=== PATIENT | female | born 1940 | race Caucasian/White ===

== ENCOUNTER 2020-02-21 19:56 | Emergency (ER) | payer MEDICARE, OTHER, SELFPAY ==
[2020-02-21] VITALS (29 sets, daily range): BP systolic 116–137; BP diastolic 51–105; PULSE 59–78; RESP 15–23; TEMP 36.5–36.6; O2SAT 97–100
--- NOTE | ~2020-02-21 | XR_ITS ---
XR chest 1V portable 02/21/2020 20:28 Indication: Cough and dyspnea Procedure: AP portable chest Comparison: Comparison to multiple prior studies sequentially, with oldest reviewed study dated 08/16. Findings: Enlarged pulmonary arteries, compatible with pulmonary arterial hypertension. Right basilar airspace disease. Nodular density right mid thorax. Advanced osteoarthritis of the shoulders with pr obable rotator cuff tears. Left basilar atelectasis. Impression: 1: Right basilar airspace disease, atelectasis versus pneumonia. 2: Nodular density right mid chest, not definitely visualized on prior examinations. Follow-up CT [facility] recommended. Reviewed, dictated and finalized at location [facility]. Impression: 1: Right basilar airspace disease, atelectasis versus pneumonia. 2: Nodular density right mid chest, not definitely visualized on prior examinat ions. Follow-up CT chest recommended.
--- NOTE | ~2020-02-21 | CT_ITS ---
EXAMINATION: CTA chest PE protocol DATE: 02/21/2020 21:26 CDT INDICATION: Dyspnea. Hemoptysis. TECHNIQUE: Computed tomographic angiography (CTA) of the chest was performed with 100 mL Omnipaque-35 0 intravenous contrast. The dose-length product was 839.95 mGy-cm. Maximum intensity projection 3D-re constructions of the aorta and other arteries were constructed by the technologist on a separate work station. COMPARISON: Chest dated 02/21/2020. FINDINGS: The study is technically adequate without evidence for pulmonary embolism. No significant p leural or pericardial effusion. There is emphysema. There is bilateral lower lobe atelectasis/scarrin g. There is focal masslike consolidation right upper lobe which corresponds to the nodular finding on chest x-ray. No endobronchial lesion. No pneumothorax. No significant pleural or pericardial effusio n. Heart size is normal. There is a cyst medial aspect of the right kidney. IMPRESSION: 1. Focal masslike consolidation right upper lobe with spiculated appearance on coronal reconstruction s measuring 2.1 cm. Differential diagnosis includes an infectious/inflammatory etiologies and maligna ncy.. 2: Bilateral lower lobe atelectasis/scarring. 3: No evidence for pulmonary embolism. 4: Emphysema. Reviewed, dictated and finalized at location [facility]. IMPRESSION: 1. Focal masslike consolidation right upper lobe with spiculated appearance on coronal reconstructions measuring 2.1 cm. Differential diagnosis includes an in fectious/inflammatory etiologies and malignancy.. 2: Bilateral lower lobe atelectasis/scarring. 3: No evidence for pulmonary embolism. 4: Emphysema.
--- NOTE | 2020-02-21 20:05 | ED.GENADULT ---
HPI - General Adult General Chief complaint: Shortness of Breath/Dyspnea Stated complaint: coughing up blood?? Time Seen by Provider: 02/21/20 20:01 Source: patient Mode of arrival: EMS Limitations: dementia History of Present Illness HPI narrative: Patient is a 79-year-old female who presents to the emergency department with report of hemoptysis and shortness of breath. Patient has dementia and resides in a memory care unit. Patient states she started coughing up blood today. Report from EMS that spoke with shelter staff stated that patient had blood-tinged sputum. Patient is chronically on 2 L of oxygen. Patient is reportedly being treated for cellulitis on her ankle. Onset (ago): hour(s) Related Data Home Medications Medication Instructions Recorded Confirmed Biofreeze (menthol) 1 applic TOPICAL Q4H PRN 09/02/19 12/02/19 Flovent HFA 2 puff INHALATION BID 09/02/19 12/02/19 acetaminophen [Tylenol] 650 mg PO Q4H PRN 09/02/19 12/02/19 aspirin 81 mg PO DAILY 09/02/19 12/02/19 atorvastatin 10 mg PO HS 09/02/19 12/02/19 guaifenesin [Mucinex] 325 mg PO Q6H PRN 09/02/19 12/02/19 ipratropium-albuterol 0.5 - 3 ml INHALATION TID 09/02/19 12/02/19 ipratropium-albuterol 3 ml INHALATION Q6H PRN 09/02/19 12/02/19 magnesium hydroxide [Milk of 10 ml PO DAILY PRN 09/02/19 12/02/19 Magnesia] melatonin 3 mg PO HS 09/02/19 12/02/19 mirtazapine 15 mg PO HS 09/02/19 12/02/19 omeprazole 20 mg PO DAILY 09/02/19 12/02/19 oxybutynin chloride 5 mg PO HS 09/02/19 12/02/19 paroxetine HCl 10 mg PO DAILY 09/02/19 12/02/19 polyethylene glycol 3350 [Miralax] 17 g PO DAILY PRN 09/02/19 12/02/19 sennosides-docusate sodium [Senna 2 tab-cap PO HS PRN 09/02/19 12/02/19 with Docusate Sodium] tramadol 50 mg PO Q6H PRN 09/02/19 12/02/19 cyanocobalamin (vitamin B-12) 500 mcg PO DAILY 02/21/20 [Vitamin B-12] folic acid 1 mg PO DAILY 02/21/20 furosemide 20 mg PO BID 02/21/20 Allergies Allergy/AdvReac Type Severity Reaction Status Date / Time latex Allergy Unknown Verified 02/21/20 20:07 Penicillins Allergy Unknown Verified 02/21/20 20:07 Review of Systems Review of Systems: All systems reviewed & are unremarkable except as noted in HPI and below Cardiovascular: Cardiovascular: Denies chest pain Respiratory: Respiratory: Reports cough and Reports hemoptysis Gastrointestinal: Gastrointestinal: Denies diarrhea, Denies nausea and Denies vomiting PMFSH Past Medical History Medical History (Updated 02/22/20 @ 01:11 by Nina Roach MD) Asthma Community acquired pneumonia COPD (chronic obstructive pulmonary disease) Dementia Depression Dyslipidemia History of leukemia MDS MDS (myelodysplastic syndrome) Pneumonia Profound anemia UTI (urinary tract infection) Surgical History Surgical History (Updated 02/21/20 @ 20:16 by Nina Roach MD) History of cholecystectomy Social History Social History (Updated 02/21/20 @ 20:17 by Nina Roach MD) Smoking status: Former smoker Tobacco type: cigarettes Alcohol intake: never Gender identity (if verbalized by the patient): Female Spiritual care concerns: No Agree to blood products: No Exam Const: General: cooperative, no acute distress and alert Nutritional Appearance: well nourished Orientation/consciousness: patient oriented x3 Limitations: no limitations Resp: Effort & Inspection: normal respiratory effort Auscultation: wheezes scattered wheezes and throughout Cardio: Rate: regular rate Rhythm: regular rhythm GI: GI Palp: Yes Soft to palpation and No Tenderness to palpation present (GI) Auscultation: normal bowel sounds Skin: General skin exam: normal color Neuro: General: patient oriented x3 Cognition (Neuro): normal cognition Speech: normal speech Extrem: General: full ROM, no clubbing, cyanosis or edema and edema bilateral (Trace) Right lower extremity: lower leg Details: erythema Location: of the distal lower leg (Faint) Loca
--- NOTE | 2020-02-21 20:12 | ECG_ITS ---
Measurements Intervals [place] Rate: 65 P: 45 OK: 114 QRS: 24 QRSD: 104 T: 34 QT: 402 QTc: 420 Interpretive Statements SINUS RHYTHM WITH SHORT OK INTERVAL BORDERLINE ECG Electronically Signed On 02-22-2020 7:00:56 CDT by Anton Monae D.O.
[2020-02-21 20:23] LABS: Basophils Percent Auto 0.5 % (0.2-1.2); Eosinophils Absolute Auto 0.6 K/mm3 (0-0.3); Immature Granulocyte Absolute 0.02 K/mm3 (0.00-0.031); Immature Granulocyte Percent A 0.3 % (0-0.5); Lymphocytes Percent Auto 29.7 % (18.3-44.2); Mean Corpuscular Hemoglobin 34.1 pg (26-34); Mean Corpuscular Volume 110.1 fl (80-100); Mean Platelet Volume 12.3 fl (7.4-10.4); Monocytes Absolute Auto 0.5 K/mm3 (0.1-0.6); Monocytes Percent Auto 6.2 % (2.6-8.5); Neutrophils Absolute Auto 4.1 K/mm3 (1.3-6.7); Neutrophils Percent Auto 55.3 % (45.5-73.1); Platelet Count Result 460 k/mm3 (150-375); Red Blood Count 1.79 M/mm3 (4.2-5.4); Red Cell Distribution Width 19.8 % (11.5-14.5); White Blood Count 7.4 K/mm3 (4.5-10.0)
[2020-02-21 20:34] LABS: Partial Thromboplastin Time 32.3 SECONDS (22.3-36.8)
[2020-02-21 20:35] LABS: Alanine Aminotransferase 7 U/L (4-35); Alkaline Phosphatase 68 U/L (38-126); Aspartate Amino Transferase 17 U/L (14-36); Bilirubin,Total 0.3 mg/dL (0.2-1.3); Blood Urea Nitrogen 16 mg/dL (7-17); Calcium 8.5 mg/dL (8.4-10.2); Carbon Dioxide 38 mmol/L (22-30); Chloride 96 mmol/L (98-107); Estimated CRCL calculation 60 ml/min; Estimated Glomerular Filt Rate > 60; Glucose 104 mg/dL (65-105); Potassium 4.2 mmol/L (3.4-5.0); Sodium 138 mmol/L (137-145)
[2020-02-21 20:40] LABS: Hemoglobin 6.1 g/dL (12.0-15.0)
[2020-02-21 20:41] LABS: Hematocrit 19.7 % (37.0-47.0)
[2020-02-21 20:43] LABS: Anisocytosis 3+ (NORMAL); Ovalocytes 2+ (NORMAL); Tear Drop Cells 2+ (NORMAL)
[2020-02-21 20:44] LABS: NT Pro B Type Natriuretic Pept 561 PG/ML (5-100)
[2020-02-21 20:46] LABS: Schistocytes 2+ (NORMAL)
[2020-02-21 20:47] LABS: Platelet Estimate Adequate (Adequate)
[2020-02-22] VITALS (23 sets, daily range): BP systolic 102–150; BP diastolic 54–74; PULSE 63–77; RESP 12–21; TEMP 36.6; O2SAT 96–100
[2020-02-22] MEDS: AZITHROMYCIN 250 MG TABLET 500 MG PO (00:59)
--- NOTE | 2020-02-22 01:47 | PC.NURSE ---
Called [facility] to transport patient. ETA is [phone]
--- NOTE | 2020-02-22 02:25 | PC.NURSE ---
[facility] called to update ETA. ETA [phone]
--- NOTE | 2020-02-22 03:37 | PC.NURSE ---
Called [facility] for ETA update. ETA [phone]
--- NOTE | 2020-02-22 05:04 | PC.NURSE ---
[facility] here at [phone]
== END 2020-02-22 05:15 ==
PROVIDERS: Emergency Provider Emergency Medicine
DX: R91.8 Other nonspecific abnormal finding of lung field (principal); J44.9 Chronic obstructive pulmonary disease, unspecified; F03.90 Unspecified dementia, unspecified severity, without behavioral disturbance, psychotic disturbance, mood disturbance, and anxiety; E78.5 Hyperlipidemia, unspecified; D46.9 Myelodysplastic syndrome, unspecified; Z87.440 Personal history of urinary (tract) infections; Z87.891 Personal history of nicotine dependence; Z79.82 Long term (current) use of aspirin; F32.9 Major depressive disorder, single episode, unspecified; R94.31 Abnormal electrocardiogram [ECG] [EKG]
CPT/HCPCS: 36415; 71045; 71275; 80053; 83880; 85025; 85610; 85730; 93005; 96365; 99284; A9270; J0696; Q9967

== ENCOUNTER 2020-03-21 03:07 | Emergency (ER) | payer MEDICARE, OTHER, SELFPAY ==
--- NOTE | ~2020-03-21 | CT_ITS ---
EXAMINATION: CTA chest PE protocol DATE: 03/21/2020 05:00 INDICATION: Shortness of breath. Hemoptysis. TECHNIQUE: Computed tomography angiography (CTA) of the chest was performed with 100 mL Omnipaque-350 intravenous contrast timed to evaluate the pulmonary arteries. Coronal maximum intensity projection 3D-reconstructions were created by the technologist. Automated exposure control and iterative reconst ruction technique were employed. Exam dose: 746.84 mGy-cm total exam DLP. COMPARISON: None. FINDINGS: There is diagnostic contrast enhancement of the pulmonary arteries and no evidence of pulmo nary embolism. No thoracic aortic aneurysm or dissection. No hilar or mediastinal mass lesion or lymphadenopathy. No pericardial or pleural effusion. Extensive degenerative changes of the cervical and thoracic spine and lumbar spine. There is focal atelectasis/consolidation in the posterior right upper lobe and some right upper lobe volume loss. Emphysematous changes are noted. There is discoid atelectasis or scarring in the postero lateral right lower lobe. IMPRESSION: No evidence of pulmonary embolism; no significant change since 03/02/2020 Reviewed, dictated and finalized at [facility]. Reviewed, dictated and finalized at location [facility]. IMPRESSION: No evidence of pulmonary embolism; no significant change since 02/13
[2020-03-21 03:08] VITALS: BP 142/56; PULSE 63; RESP 19; TEMP 36.5; O2SAT 77
[2020-03-21 03:18] VITALS: BP 128/61; PULSE 58; RESP 17; O2SAT 97
--- NOTE | 2020-03-21 04:36 | ED.GENADULT ---
HPI - General Adult General Chief complaint: Recheck/Abnormal Lab/Rx Stated complaint: COUGHING UP BLOOD Time Seen by Provider: 03/21/20 04:26 History of Present Illness HPI narrative: Patient presents via EMS from her intermediate and her daughter is here. At the intermediate she was feeling short of breath and coughed up about a half a cup of blood. This is similar presentation to her last visit here a month ago. She is known to have myeloproliferative disease, and runs anemic. She does not want a blood transfusion even if her counts are low. She has dementia and is oriented x2. Her daughter is her power of agricultural plow operator, but agrees with her mother's decisions. When I asked what she wants for me, she said just to go back to her intermediate. There is a known lung mass, which is suspected to be cancer, if that is the case I can recommend hospice. Onset (ago): hour(s) Radiation: non-radiation Related Data Home Medications Medication Instructions Recorded Confirmed Biofreeze (menthol) 1 applic TOPICAL Q4H PRN 09/02/19 12/02/19 Flovent HFA 2 puff INHALATION BID 09/02/19 12/02/19 acetaminophen [Tylenol] 650 mg PO Q4H PRN 09/02/19 12/02/19 aspirin 81 mg PO DAILY 09/02/19 12/02/19 atorvastatin 10 mg PO HS 09/02/19 12/02/19 guaifenesin [Mucinex] 325 mg PO Q6H PRN 09/02/19 12/02/19 ipratropium-albuterol 0.5 - 3 ml INHALATION TID 09/02/19 12/02/19 ipratropium-albuterol 3 ml INHALATION Q6H PRN 09/02/19 12/02/19 magnesium hydroxide [Milk of 10 ml PO DAILY PRN 09/02/19 12/02/19 Magnesia] melatonin 3 mg PO HS 09/02/19 12/02/19 mirtazapine 15 mg PO HS 09/02/19 12/02/19 omeprazole 20 mg PO DAILY 09/02/19 12/02/19 oxybutynin chloride 5 mg PO HS 09/02/19 12/02/19 paroxetine HCl 10 mg PO DAILY 09/02/19 12/02/19 polyethylene glycol 3350 [Miralax] 17 g PO DAILY PRN 09/02/19 12/02/19 sennosides-docusate sodium [Senna 2 tab-cap PO HS PRN 09/02/19 12/02/19 with Docusate Sodium] tramadol 50 mg PO Q6H PRN 09/02/19 12/02/19 cyanocobalamin (vitamin B-12) 500 mcg PO DAILY 02/21/20 [Vitamin B-12] folic acid 1 mg PO DAILY 02/21/20 furosemide 20 mg PO BID 02/21/20 Allergies Allergy/AdvReac Type Severity Reaction Status Date / Time latex Allergy Unknown Verified 02/21/20 20:07 Penicillins Allergy Unknown Verified 02/21/20 20:07 Review of Systems Review of Systems: Narrative: CONSTITUTIONAL: Denies fever, chills, or sweats. EYES: Denies visual changes, redness, or discharge. ENT: Denies rhinorrhea, congestion, sore throat, or otalgia. CARDIOVASCULAR: Denies chest pain, palpitations, or edema. RESPIRATORY: She had shortness of breath and cough with blood at the intermediate. GASTROINTESTINAL: Denies abdominal pain, nausea, vomiting, or diarrhea. GENITOURINARY: Denies dysuria or hematuria. SKIN: Denies rash or itching. MUSCULOSKELETAL: Denies back pain, joint pain, or myalgia. NEUROLOGIC: Denies headache, numbness, or weakness. She has no memory problems. PSYCHIATRIC: Denies anxiety or depression. PMFSH Past Medical History Medical History Asthma Community acquired pneumonia COPD (chronic obstructive pulmonary disease) Dementia Depression Dyslipidemia History of leukemia MDS MDS (myelodysplastic syndrome) Pneumonia Profound anemia UTI (urinary tract infection) Surgical History Surgical History History of cholecystectomy Social History Social History Smoking status: Former smoker Tobacco type: cigarettes Alcohol intake: never Gender identity (if verbalized by the patient): Female Spiritual care concerns: No Agree to blood products: No Exam Narrative: Exam Narrative: GENERAL: Well-appearing, well-nourished, and in no acute distress. Pale overweight. HEAD: Normocephalic, atraumatic. EYES: PERRLA and EOMI. ENT: Nares clear, no rhinorrhea or epistaxis. Mucous
[2020-03-21 04:46] LABS: Basophils Percent Auto 0.7 % (0.2-1.2); Eosinophils Absolute Auto 0.6 K/mm3 (0-0.3); Eosinophils Percent Auto 10.4 % (0-4.4); Immature Granulocyte Absolute 0.03 K/mm3 (0.00-0.031); Immature Granulocyte Percent A 0.5 % (0-0.5); Lymphocytes Absolute Auto 1.41 K/mm3 (0.9-3.2); Lymphocytes Percent Auto 23.5 % (18.3-44.2); Mean Corpuscular Hemoglobin 34.1 pg (26-34); Mean Corpuscular Volume 109.9 fl (80-100); Monocytes Absolute Auto 0.3 K/mm3 (0.1-0.6); Monocytes Percent Auto 5.7 % (2.6-8.5); Neutrophils Absolute Auto 3.6 K/mm3 (1.3-6.7); Neutrophils Percent Auto 59.2 % (45.5-73.1); Platelet Count Result 448 k/mm3 (150-375); Red Blood Count 1.82 M/mm3 (4.2-5.4); Red Cell Distribution Width 21.5 % (11.5-14.5)
[2020-03-21 04:55] LABS: Prothrombin Time 13.3 Seconds (11.1-14.7)
[2020-03-21 04:58] LABS: Hemoglobin 6.2 g/dL (12.0-15.0)
[2020-03-21 05:07] LABS: Alanine Aminotransferase 7 U/L (4-35); Albumin Level 3.8 g/dL (3.5-5.1); Alkaline Phosphatase 55 U/L (38-126); Aspartate Amino Transferase 17 U/L (14-36); Bilirubin,Total 0.4 mg/dL (0.2-1.3); Blood Urea Nitrogen 18 mg/dL (7-17); Calcium 8.8 mg/dL (8.4-10.2); Carbon Dioxide > 40 mmol/L (22-30); Chloride 97 mmol/L (98-107); Estimated Glomerular Filt Rate > 60; Glucose 93 mg/dL (65-105); Potassium 4.4 mmol/L (3.4-5.0); Sodium 138 mmol/L (137-145)
[2020-03-21 05:32] VITALS: BP 120/53; PULSE 56; RESP 13
--- NOTE | 2020-03-21 06:19 | PC.NURSE ---
This nurse spoke with Pt and daughter about low hgb level and their options. Pt does not want blood transfusions and daughter agrees with the patient's decision at this time.
[2020-03-21 06:22] VITALS: RESP 16; O2SAT 97
[2020-03-21 06:31] VITALS: BP 122/64; PULSE 63; RESP 17; O2SAT 98
--- NOTE | 2020-03-21 07:14 | PC.NURSE ---
Pt is in room awaiting EMS for pick to return to nursing facility. This nurse mcgregor given report to RN Cat.
[2020-03-21 08:15] VITALS: BP 130/70; PULSE 70; RESP 18; O2SAT 98
== END 2020-03-21 08:15 ==
PROVIDERS: Emergency Provider Emergency Medicine
DX: J18.9 Pneumonia, unspecified organism (principal); D46.9 Myelodysplastic syndrome, unspecified; R04.2 Hemoptysis; J44.9 Chronic obstructive pulmonary disease, unspecified; F03.90 Unspecified dementia, unspecified severity, without behavioral disturbance, psychotic disturbance, mood disturbance, and anxiety; E78.5 Hyperlipidemia, unspecified; Z87.440 Personal history of urinary (tract) infections; Z87.891 Personal history of nicotine dependence; Z79.82 Long term (current) use of aspirin
CPT/HCPCS: 36415; 71275; 80053; 85025; 85610; 86850; 86900; 86901; 96365; 99284; J0696; Q9967

== ENCOUNTER 2020-06-25 11:58 | Outpatient (CLI) | payer MEDICARE, OTHER, SELFPAY ==
--- NOTE | ~2020-06-25 | PE_ITS ---
EXAMINATION: PET skull to mid thigh DATE: 06/25/2020 14:47 INDICATION: Pulmonary nodule TECHNIQUE: Blood glucose level was 86 mg/dL. 9.8 mCi of 18-fluorodeoxyglucose (18-FDG) was administer ed i.v. Low dose computed tomography (CT) images were acquired from the base of the brain to the prox imal thighs for attenuation correction and anatomic localization. Positron emission tomography (PET) images were acquired in the same distribution beginning 60 minutes after injection. The dose-length p roduct (DLP) was 948.67 mGy-cm. COMPARISON: 03/21/2020 FINDINGS: Head/neck: FDG activity in the oral cavity without suspicious CT correlate is likely physiologic. Chest: There is an approximately 3.5 x 2.1 cm mass of the right upper lobe with abnormal FDG uptake i n its central portion and SUV max of 3.1. There is a 3.6 x 2.4 cm pathologically enlarged right lower paratracheal lymph node with an SUV max of 7.7. A 7 mm nodule is located more anteriorly in the righ t upper lobe and does not demonstrate associated FDG uptake although this could be due to small size. Cardiomegaly is noted. There is no pleural effusion or pneumothorax. Abdomen/pelvis/proximal thighs: Physiologic FDG activity is present in the bowel and urinary tract. T here is an approximately 2 cm area of FDG uptake in liver segment IV with SUV max of 3.7 with a possi ble subtle associated mass. The gallbladder is surgically absent. Pneumobilia is noted, suspect relat ed to prior sphincterotomy. The spleen, pancreas, and adrenal glands are normal. The kidneys are unre markable. No pathologically enlarged abdominal or pelvic lymph nodes are identified. There is no free intraperitoneal gas or evidence of bowel obstruction. There is calcified atherosclerosis of the aort a and many of the other arteries. Musculoskeletal: No suspicious FDG uptake is identified. There are is a compression fracture of the L 3 vertebral body. Severe lumbar spondylosis noted. There is mild/moderate cervical and thoracic spond ylosis. IMPRESSION: 1. Right upper lobe mass with abnormal FDG uptake, consistent with primary bronchogenic carcinoma. 2. Enlarged right lower paratracheal lymph node with abnormal FDG uptake, consistent with metastatic disease. 3. Abnormal FDG uptake in liver segment IV without definite CT correlate but also concerning for meta static disease. Reviewed, dictated and finalized at location [facility]. IMPRESSION: 1. Right upper lobe mass with abnormal FDG uptake, consistent with primary bron chogenic carcinoma. 2. Enlarged right lower paratracheal lymph node with abnormal FDG uptake, consi stent with metastatic disease. 3. Abnormal FDG uptake in liver segment IV without definite CT correlate but al so concerning for metastatic disease.
[2020-06-25 12:45] LABS: Glucose Point of Care 86 (65-105)
== END 2020-06-25 11:59 | disposition home or self-care (01) ==
PROVIDERS: Visit Provider Radiology Radiation Oncology
DX: R91.1 Solitary pulmonary nodule (principal); R91.8 Other nonspecific abnormal finding of lung field; R59.0 Localized enlarged lymph nodes; R93.2 Abnormal findings on diagnostic imaging of liver and biliary tract
CPT/HCPCS: 78815; A9552

== ENCOUNTER 2020-10-05 13:16 | Outpatient (CLI) | payer MEDICARE, OTHER, SELFPAY ==
--- NOTE | ~2020-10-05 | CT_ITS ---
EXAMINATION: CT chest wo con DATE: 10/05/2020 13:57 INDICATION: Malignant neoplasm of the right upper lobe. TECHNIQUE: Computed tomography (CT) of the chest was performed without intravenous contrast. The dose -length product was 494.17 mGy-cm. Automated exposure control and iterative reconstruction technique were employed. COMPARISON: CT dated 03/21/2020 FINDINGS: There is atherosclerosis of the aorta and coronary arteries. Heart size upper normal. No si gnificant pleural or pericardial effusion. No thoracic lymphadenopathy. There is an irregular shaped soft tissue mass in the right upper lobe measuring 1.5 x 3.2 cm greatest axial dimension. There are c ontiguous air bronchograms. There are emphysematous changes. There is a 4 mm right middle lobe nodule without significant change. There is right lower lobe atelectasis. No pneumothorax. There is a subso lid nodule in the right upper lobe adjacent to a bleb measuring 10 x 8 mm greatest axial dimension. I nterval resolution of right paratracheal lymphadenopathy compared with prior examination, consistent with response to therapy. IMPRESSION: 1. Possible slight interval decrease in size of right upper lobe mass with irregular margins. This co rresponds to the patient's known malignancy. The mass now measures 3.2 x 1.5 cm greatest axial dimens ion. Interval resolution of right paratracheal lymphadenopathy. This constellation of findings is sug gestive of interval response to therapy. 2: Subsolid right upper lobe nodule measuring 10 x 8 mm adjacent to a bleb. Differential diagnosis in cludes metastatic disease and postinfectious/inflammatory changes. 3: Emphysema. Reviewed, dictated and finalized at location [facility]. ARY SUPERVISOR IMPRESSION: 1. Possible slight interval decrease in size of right upper lobe mass with irre gular margins. This corresponds to the patient's known malignancy. The mass now measures 3.2 x 1.5 cm greatest axial dimension. Interval resolution of right p aratracheal lymphadenopathy. This constellation of findings is suggestive of in terval response to therapy. 2: Subsolid right upper lobe nodule measuring 10 x 8 mm adjacent to a bleb. Dif ferential diagnosis includes metastatic disease and postinfectious/inflammatory changes. 3: Emphysema.
== END 2020-10-05 13:17 | disposition home or self-care (01) ==
PROVIDERS: Visit Provider Radiology Radiation Oncology
DX: C34.11 Malignant neoplasm of upper lobe, right bronchus or lung (principal); I25.10 Atherosclerotic heart disease of native coronary artery without angina pectoris; J98.11 Atelectasis; J43.9 Emphysema, unspecified
CPT/HCPCS: 71250

== ENCOUNTER 2020-11-26 14:26 | Inpatient (IN) | payer MEDICARE, OTHER, SELFPAY ==
[2020-11-26] VITALS (32 sets, daily range): BP systolic 102–125; BP diastolic 44–96; PULSE 63–73; RESP 14–82; TEMP 36.1–37.2; O2SAT 86–100; BMI 32.1
--- NOTE | ~2020-11-26 | CT_ITS ---
EXAMINATION: CT chest abdomen pelvis wo con DATE: 11/26/2020 15:43 TEAM MEMBER INDICATION: Altered mental status. Abdomen pain. Shortness of breath. TECHNIQUE: Computed tomography (CT) of the chest, abdomen, and pelvis was performed without intraveno us contrast. The dose-length product was 1526.46 mGy-cm. Automated exposure control and iterative rec onstruction technique were employed. COMPARISON: Comparison to multiple prior studies sequentially, with oldest reviewed study dated 03/2020. FINDINGS: CHEST CT: There is a persistent right upper lobe mass which abuts the fissure measuring 2.6 x 1.7 cm greatest a xial dimension. There is adjacent airspace consolidation in the right upper lobe. There is a 7 mm nod ule adjacent to a bleb in the right upper lobe, image 37. There is right lower lobe atelectasis. Ther e is right paratracheal lymphadenopathy unchanged, likely metastatic disease. No significant pleural or pericardial effusion. Heart size is normal. There is atherosclerosis. ABDOMEN/PELVIS CT: Status post cholecystectomy with pneumobilia. The spleen, pancreas, adrenal glands and kidneys are un remarkable. There is retroperitoneal lymphadenopathy, nonspecific. There is a left inguinal hernia co ntaining nonobstructed small bowel. There is lymphadenopathy of the right external iliac chain, retro peritoneum and right femoral locations. There is a right hip arthroplasty. There is mild superior end plate compression deformities of L3 and L5, likely chronic. There is moderate thoracic and lumbar spo ndylosis. There is grade 1 degenerative spondylolisthesis at L4-5. There is scoliosis. IMPRESSION: 1. Persistent right upper lobe mass without significant interval change measuring 2.6 x 1.[address] axial dimension, consistent with patient's known malignancy. Additional smaller nodule measuring 7 mm in the right upper lobe may represent metastatic disease. 2: Mediastinal, abdominal and pelvic lymphadenopathy, nonspecific. Mediastinal lymph nodes are impro pauline since 06/25/2020 and stable since 10/05/2020. Additional lymph nodes in the abdomen or pelvis are stable. Reviewed, dictated and finalized at location B. MEMBER IMPRESSION: 1. Persistent right upper lobe mass without significant interval change measuri ng 2.6 x 1.7 cm greatest axial dimension, consistent with patient's known malig diane. Additional smaller nodule measuring 7 mm in the right upper lobe may rep resent metastatic disease. 2: Mediastinal, abdominal and pelvic lymphadenopathy, nonspecific. Mediastinal lymph nodes are improved since 06/25/2020 and stable since 10/05/2020. Addition al lymph nodes in the abdomen or pelvis are stable.
--- NOTE | ~2020-11-26 | CT_ITS ---
EXAMINATION: CT brain wo con DATE: 11/26/2020 15:39 INDICATION: Altered mental status. TECHNIQUE: Computed tomography (CT) of the head was performed without intravenous contrast. Sagittal and coronal reconstructions were performed. The mA was adjusted according to patient size. Iterative reconstruction technique was employed. The dose-length product was 681.00 mGy-cm. COMPARISON: None FINDINGS: No acute intracranial hemorrhage, acute infarction or abnormal extra axial fluid collection. There is moderate scattered white matter hypoattenuation consistent with chronic small vessel ischemic diseas e. Symmetric prominence of the sulci consistent with mild age-appropriate diffuse cerebral volume los s. Ventricles are normal and symmetric. No mass/mass effect. Changes of bilateral intraocular lens re placement. The orbits and mastoid air cells are normal. Mucosal thickening the bilateral maxillary si nuses IMPRESSION: 1. No acute intracranial process. 2. Age-related changes including mild diffuse volume loss and moderate scattered white matter hypoatt enuation consistent with chronic small vessel ischemic disease. Reviewed, dictated and finalized at location A. DING ROOM SUPERVISOR IMPRESSION: 1. No acute intracranial process. 2. Age-related changes including mild diffuse volume loss and moderate scattere d white matter hypoattenuation consistent with chronic small vessel ischemic di sease.
--- NOTE | 2020-11-26 14:31 | ECG_ITS ---
Measurements Intervals [place] Rate: 68 P: 60 WI: 130 QRS: 28 QRSD: 104 T: 59 QT: 397 QTc: 424 Interpretive Statements SINUS RHYTHM DELAYED PRECORDIAL R/S TRANSITION BASELINE ARTIFACT- I, II, III, AVR, AVL, AVF, V1-V3 BORDERLINE ECG Electronically Signed On 11-26-2020 14:51:12 [employer]OLD [employer]HER by Anton Monae D.O.
[2020-11-26 14:46] LABS: Basophils Percent Auto 0.7 % (0.2-1.2); Eosinophils Percent Auto 0.4 % (0-4.4); Immature Granulocyte Percent A 1.8 % (0-0.5); Lymphocytes Absolute Auto 1.02 K/mm3 (0.9-3.2); Lymphocytes Percent Auto 18.1 % (18.3-44.2); Mean Corpuscular HGB Conc 31.2 g/dl (32-36); Mean Corpuscular Hemoglobin 37.6 pg (26-34); Mean Corpuscular Volume 120.6 fl (80-100); Mean Platelet Volume 12.7 fl (7.4-10.4); Monocytes Absolute Auto 0.5 K/mm3 (0.1-0.6); Monocytes Percent Auto 9.3 % (2.6-8.5); Neutrophils Absolute Auto 3.9 K/mm3 (1.3-6.7); Neutrophils Percent Auto 69.7 % (45.5-73.1); Nucleated Red Blood Cells Perc 0.7 % (0.0-0.2); Platelet Count Result 339 k/mm3 (150-375); Red Cell Distribution Width 22.2 % (11.5-14.5); White Blood Count 5.6 K/mm3 (4.5-10.0)
[2020-11-26 14:54] LABS: Hemoglobin 6.4 g/dL (12.0-15.0)
[2020-11-26 14:55] LABS: Hematocrit 20.5 % (37.0-47.0)
[2020-11-26 15:00] LABS: Alanine Aminotransferase 23 U/L (4-35); Alkaline Phosphatase 41 U/L (38-126); Aspartate Amino Transferase 38 U/L (14-36); Bilirubin,Total 0.6 mg/dL (0.2-1.3); Blood Urea Nitrogen 22 mg/dL (7-17); Calcium 8.6 mg/dL (8.4-10.2); Carbon Dioxide > 40 mmol/L (22-30); Chloride 96 mmol/L (98-107); Estimated Glomerular Filt Rate 53; Glucose 96 mg/dL (65-105); Potassium 4.3 mmol/L (3.4-5.0); Sodium 141 mmol/L (137-145)
[2020-11-26 15:06] LABS: Add Urine Microscopic? NO; Appearance Urine Clear (Clear); Bilirubin Urine Negative (Negative); Blood Urine Negative (Negative); Color Urine Yellow (Yellow); Glucose Urine UA Negative (Negative); Ketones Urine Negative (Negative); Leukocyte Esterase Ur Negative LEU/UL (Negative); Nitrate Urine Negative (Negative); Protein Urine Negative (Negative); Specific Grav Ur 1.012 (1.001-1.035); Urobilinogen Urine Negative mg/dL (<2.0)
[2020-11-26 15:06] LABS: Anisocytosis 3+ (NORMAL); Hypochromasia 2+ (NORMAL); Platelet Estimate Adequate (Adequate)
--- NOTE | 2020-11-26 15:16 | ED.AMS ---
HPI - Altered Mental Status General Chief Complaint: Altered Mental Status Stated Complaint: altered mental Time Seen by Provider: 11/26/20 14:55 Source: patient and family Mode of arrival: EMS Limitations: altered mental status History of Present Illness HPI narrative: Patient is an 80-year-old female brought in due for altered mental status x2 weeks but worse the past 2 days. Her daughter states that today patient would not even wake up or get up to go the bathroom , patient is usually in a wheelchair but states that she would inform someone if she needed assist. Daughter also states that she noticed an increased work of breathing, on 2 L continuously at the assisted living facility but upon arrival today to the ER oxygen saturation was 86%. daughter also states that the past few days patient is more lethargic. Patient denies any headache, chest pain, shortness of breath, nausea, vomiting, diarrhea, urinary symptoms, fever or chills. Follow-up patient does admit to abdominal pain generalized earlier today but states that it slowly subsiding. Related Data Home Medications Medication Instructions Recorded Confirmed Biofreeze (menthol) 1 applic TOPICAL Q4H PRN 09/02/19 11/24/20 Flovent HFA 2 puff INHALATION BID 09/02/19 11/24/20 acetaminophen [Tylenol] 650 mg PO Q4H PRN 09/02/19 11/24/20 aspirin 81 mg PO DAILY 09/02/19 11/24/20 atorvastatin 10 mg PO HS 09/02/19 11/24/20 guaifenesin [Mucinex] 325 mg PO Q6H PRN 09/02/19 11/24/20 ipratropium-albuterol 0.5 - 3 ml INHALATION TID 09/02/19 11/24/20 ipratropium-albuterol 3 ml INHALATION Q6H PRN 09/02/19 11/24/20 magnesium hydroxide [Milk of 10 ml PO DAILY PRN 09/02/19 11/24/20 Magnesia] melatonin 3 mg PO HS 09/02/19 11/24/20 mirtazapine 15 mg PO HS 09/02/19 11/24/20 omeprazole 20 mg PO DAILY 09/02/19 11/24/20 oxybutynin chloride 5 mg PO HS 09/02/19 11/24/20 paroxetine HCl 10 mg PO DAILY 09/02/19 11/24/20 polyethylene glycol 3350 [Miralax] 17 g PO DAILY PRN 09/02/19 11/24/20 sennosides-docusate sodium [Senna 2 tab-cap PO HS PRN 09/02/19 11/24/20 with Docusate Sodium] tramadol 50 mg PO Q6H PRN 09/02/19 11/24/20 cyanocobalamin (vitamin B-12) 500 mcg PO DAILY 02/21/20 11/24/20 [Vitamin B-12] folic acid 1 mg PO DAILY 02/21/20 11/24/20 furosemide 20 mg PO BID 02/21/20 11/24/20 Allergies Allergy/AdvReac Type Severity Reaction Status Date / Time latex Allergy Unknown Verified 10/13/20 11:13 Penicillins Allergy Unknown Verified 10/13/20 11:13 Review of Systems Review of Systems: All systems reviewed & are unremarkable except as noted in HPI and below Constitutional: Constitutional: Denies body ache(s), Denies chills, Denies excessive sweating, Denies fatigue, Denies fever(s), Denies headache(s) and Denies weight loss Eyes: Eyes: Denies blurry vision, Denies change in vision and Denies loss of vision ENT: Denies dizziness, Denies ear discharge, Denies headache(s), Denies lip swelling, Denies epistaxis, Denies nasal congestion, Denies neck pain, Denies throat swelling and Denies tongue swelling Cardiovascular: Cardiovascular: Denies chest pain, Denies chest pain at rest, Denies chest pain with activity, Denies diaphoresis, Denies rapid heart rate, Denies edema, Denies irregular heart rhythm, Denies lightheadedness, Denies palpitations and Denies dyspnea Respiratory: Respiratory: Denies chest congestion, Denies cough, Denies hemoptysis and Denies dyspnea Gastrointestinal: Gastrointestinal: Denies abdominal pain, Denies melena, Denies hematochezia, Denies diarrhea, Denies nausea, Denies vomiting and Denies hematemesis Neurologic: Denies Abnormal speech present, Denies dizziness, Denies headache(s), Denies focal weakness, Denies loss of vision, Denies numbness, Denies Other visual disturbances and Denies Sensory deficit (Neuro) Psychiatric: Psychiatric: Denies depression, Denies auditory hallucinations, Denies homicidal ideation and Denies suicidal ideation Endocrine: Endocrine: Denies co
[2020-11-26 16:49] LABS: Alveolar/Arterial O2 Gradient 125.3 mmHg; Base Excess ABG 11.5 mEq/l (+/-2.0); Carboxyhemoglobin 1.8 % THb (0-2.0); Fractional Inspired Oxygen 36 %; HCO3 ABG 37.7 mEq/l (22.0-26.0); Methemoglobin ABG 0.4 %THb (0-1.5); Oxygen Content ABG 8.5 %vol (16.0-22.0); Oxygen Saturation ABG 88.8 % (95.0-100.0); PO2 ABG 57.7 mmHg (80.0-100.0); Reduced Hemoglobin 13.8 %THb (0-5.0); pH ABG 7.392 (7.350-7.450)
[2020-11-26 16:51] LABS: PCO2 ABG 63.5 mmHg (35.0-45.0)
[2020-11-26 16:52] LABS: Device NASAL CANNULA; Site Drawn LEFT BRACHIAL; Total Hemoglobin 7.1 g/dL (12.0-18.0)
[2020-11-26] MEDS: IPRATROPIUM BR 0.02% INH SOLN 0.5 MG/2.5 ML VIAL INHALATION (16:58)
[2020-11-26] MEDS: ALBUTEROL SULFATE NEB 2.5 MG/0.5 ML INH 5 MG INHALATION (16:59)
--- NOTE | 2020-11-26 19:13 | PC.NURSE ---
Pt report to J[facility] Lim at this time bedside, he has assumed pt care.
[2020-11-26] MEDS: LACTATED RINGERS 1,000 ML 90 ML IV CONT (21:32)
--- NOTE | 2020-11-26 23:17 | ADMGEN ---
This patient, Lindsay Brown, was admitted to IMU Room 232-01 AT 2250. Patient/family oriented to hospital policies and general routines including ID bracelet, bed and alarms, visiting hours, pain management, procedures, bathroom and other care routines, personal items, smoking policy, room service/diet, and visiting hours. Information on how to activate the Rapid Response Team has been discussed. Patient/Family are encouraged to report perceived risks to care and to ask questions if they do not understand what they are told or what they should do.
[2020-11-27] VITALS (21 sets, daily range): BP systolic 103–135; BP diastolic 40–73; PULSE 60–81; RESP 15–22; TEMP 36–36.5; O2SAT 92–99
--- NOTE | 2020-11-27 00:11 | PM.IMHP ---
H&P: HPI History of Present Illness Date/Time: 11/26/20 7608 Chief Complaint: Hypoxia and hypercapnia Narrative: Lindsay Brown is a 80 year old female who has a history of dementia and resides at [facility]. Altered mental status changes for the last 2 weeks but has gotten worse the last 2 days. The patient has chronic hypoxia and is on oxygen at 2 L per nasal cannula chronically. The patient was very lethargic today and would even get up to go to the bathroom. The patient had increased shortness of breath. Patient's O2 saturations were 86% on her continuous 2 L per nasal cannula And was more lethargic. 6.4 and 20.5 which is her chronic baseline level due to MDS(myelodysplastic syndrome). The patient is a Jehovah Witness and does not receive any blood products. On her ABGs, Her pH was normal and her stay pCO2 was 63.5 And her PO2 was 57.7. Of the abdomen was read as persistent right upper lobe mass without significant interval change measuring 2.6 x 1.7 cm greatest axial dimension consistent with patient's known malignancy. Additional smaller nodule measuring 7 mm in the right upper lobe may represent metastatic disease. Mediastinal abdominal and pelvic lymphadenopathy. Mediastinal lymph nodes are improved since 06/25/2020 and stable since 10/05/2020. Head CT offered nothing acute age-related changes including mild diffuse volume loss and moderate scattered white matter hypoattenuation consistent was chronic small vessel ischemic disease. The patient was placed on a BiPAP machine and she was able to answer some questions for me. Admitted to observation the date of service of 11/26/2020 Review of Systems Review of Systems: All systems reviewed & are unremarkable except as noted in HPI and below Constitutional: Constitutional: Reports as per HPI and Reports no additional constitutional complaints Eyes: Eyes: Reports as per HPI and Reports no additional eye complaints ENT: Reports system reviewed and no additional complaints, except as documented and Reports Normal hearing present Cardiovascular: Cardiovascular: Reports no additional cardiovascular complaints Respiratory: Respiratory: Reports no additional respiratory complaints and Reports no additional respiratory complaints Gastrointestinal: Gastrointestinal: Reports as per HPI and Reports no additional gastrointestinal complaints Musculoskeletal: Musculoskeletal: Reports no additional musculoskeletal complaints Integumentary/Breasts: Skin/Breast: Reports system reviewed and no additional complaints, except as docu and Reports as per HPI Neurologic: Reports system reviewed and no additional complaints, except as documented, Reports as per HPI and Reports Normal hearing present Psychiatric: Psychiatric: Reports no additional psychiatric complaints and Reports as per HPI Endocrine: Endocrine: Reports no additional endocrine complaints Hematologic/Lymphatic: Hematologic/Lymphatic: Reports no additional hematologic/lymphatic complaints Allergic/Immunologic: Allergic/Immunologic: Reports no additional allergic/immunologic complaints [facility] Past Medical History Medical History (Updated 11/27/20 @ 00:29 by Chasity Sims NP) Asthma Chronic respiratory failure with hypoxia On 2 L per nasal cannula Closed fracture of right hip requiring operative repair Community acquired pneumonia COPD (chronic obstructive pulmonary disease) Dementia Depression Dyslipidemia History of leukemia MDS MDS (myelodysplastic syndrome) Metastatic lung cancer (metastasis from lung to other site) Pneumonia Profound anemia S/P ORIF (open reduction internal fixation) fracture Right hip UTI (urinary tract infection) Surgical History Surgical History History of cholecystectomy Family History Family History Mother Leukemia Social History Social History (Update
[2020-11-27 00:42] LABS: Alveolar/Arterial O2 Gradient 124.1 mmHg; Fractional Inspired Oxygen 40 %; HCO3 ABG 38.6 mEq/l (22.0-26.0); Oxygen Content ABG 8.8 %vol (16.0-22.0); Oxyhemoglobin 93.9 % THb (90.0-100.0); PCO2 ABG 59.9 mmHg (35.0-45.0); PO2 ABG 92.2 mmHg (80.0-100.0); pH ABG 7.427 (7.350-7.450)
[2020-11-27 00:44] LABS: Device NON-INVASIVE VENT; Modified Allen's Test Pass; Site Drawn LEFT RADIAL; Total Hemoglobin 6.5 g/dL (12.0-18.0)
[2020-11-27 00:45] LABS: Non-Invasive Expiratory Pressure 5 CMH2O; Non-Invasive Inspiratory Pressure 12 CMH2O; Non-Invasive Vent Rate 4 /MIN
[2020-11-27 05:08] LABS: Basophils Percent Auto 0.5 % (0.2-1.2); Eosinophils Absolute Auto 0.1 K/mm3 (0-0.3); Eosinophils Percent Auto 2.5 % (0-4.4); Immature Granulocyte Absolute 0.05 K/mm3 (0.00-0.031); Immature Granulocyte Percent A 1.2 % (0-0.5); Lymphocytes Absolute Auto 0.81 K/mm3 (0.9-3.2); Lymphocytes Percent Auto 18.7 % (18.3-44.2); Mean Corpuscular HGB Conc 30.6 g/dl (32-36); Mean Corpuscular Hemoglobin 35.8 pg (26-34); Mean Platelet Volume 12.4 fl (7.4-10.4); Monocytes Absolute Auto 0.3 K/mm3 (0.1-0.6); Monocytes Percent Auto 7.6 % (2.6-8.5); Neutrophils Percent Auto 69.5 % (45.5-73.1); Nucleated Red Blood Cells Perc 0.7 % (0.0-0.2); Platelet Count Result 273 k/mm3 (150-375); Red Blood Count 1.59 M/mm3 (4.2-5.4); Red Cell Distribution Width 22.5 % (11.5-14.5); White Blood Count 4.3 K/mm3 (4.5-10.0)
[2020-11-27 05:21] LABS: Hematocrit 18.6 % (37.0-47.0); Hemoglobin 5.7 g/dL (12.0-15.0)
[2020-11-27 05:27] LABS: Alanine Aminotransferase 19 U/L (4-35); Albumin Level 3.4 g/dL (3.5-5.1); Alkaline Phosphatase 39 U/L (38-126); Aspartate Amino Transferase 30 U/L (14-36); Bilirubin,Total 0.7 mg/dL (0.2-1.3); Blood Urea Nitrogen 20 mg/dL (7-17); CRP 0.7 mg/dL (<1.0); Calcium 8.5 mg/dL (8.4-10.2); Carbon Dioxide > 40 mmol/L (22-30); Chloride 99 mmol/L (98-107); Estimated CRCL calculation 54 ml/min; Estimated Glomerular Filt Rate > 60; Glucose 90 mg/dL (65-105); Lactate Dehydrogenase 456 U/L (313-618); Magnesium 1.7 mg/dL (1.6-2.3); Potassium 4.1 mmol/L (3.4-5.0); Sodium 142 mmol/L (137-145)
[2020-11-27 06:20] LABS: Thyroid Stimulating Hormone Reflex 0.788 uIU/mL (0.465-4.68)
--- NOTE | 2020-11-27 08:51 | PM.IMPN ---
Progress Note: A&P Assessment and Plan (1) Chronic respiratory failure with hypoxia: Code(s): J96.11 - Chronic respiratory failure with hypoxia Status: Chronic Assessment and Plan: Will continue with BiPAP. Monitor ABG oxygen and carbon dioxide. Will also give steroid and p.o. antibiotics. For possible bronchitis. (2) Metastatic lung cancer (metastasis from lung to other site): Code(s): C34.90 - Malignant neoplasm of unspecified part of unspecified bronchus or lung Status: Chronic Assessment and Plan: Stable no acute changes. Will continue to monitor. (3) Profound anemia: Code(s): D64.9 - Anemia, unspecified Status: Acute Assessment and Plan: Patient is a Zoroastrianism. Will use iron transfusion. Will also give Epogen. Monitor hemoglobin. (4) MDS (myelodysplastic syndrome): Code(s): D46.9 - Myelodysplastic syndrome, unspecified Status: Acute Assessment and Plan: Continue monitor hemoglobin. (5) Altered mental status: Qualifiers: Altered mental status type: unspecified Qualified Code(s): R41.82 - Altered mental status, unspecified Code(s): R41.82 - Altered mental status, unspecified Status: Acute Assessment and Plan: Most likely secondary to high carbon dioxide will continue with BiPAP. Also the blood culture and urine culture. Subjective Date/time seen: 11/27/20 08:51 Interval history: Patient was seen during the morning rounds today. Patient is slightly confused. Patient is on BiPAP. Patient denies any chest pain. No nausea vomiting. Mood stable. Review of Systems Review of Systems: All systems reviewed & are unremarkable except as noted in HPI and below Constitutional: Constitutional: Reports as per HPI Eyes: Eyes: Reports as per HPI ENT: Reports system reviewed and no additional complaints, except as documented Cardiovascular: Cardiovascular: Reports as per HPI Respiratory: Respiratory: Reports as per HPI Gastrointestinal: Gastrointestinal: Reports as per HPI Musculoskeletal: Musculoskeletal: Reports no additional musculoskeletal complaints Neurologic: Reports system reviewed and no additional complaints, except as documented and Reports as per HPI Psychiatric: Psychiatric: Reports no additional psychiatric complaints and Reports as per HPI Endocrine: Endocrine: Reports as per HPI Exam Const: General: cooperative and no acute distress Orientation/consciousness: oriented to person, oriented to place, oriented to time and patient oriented x3 HENMT: Head: normal to inspection Ears: hearing grossly normal bilaterally and external ears normal General nose exam: Normal external nose present Face and sinus: normal facial exam Mouth: Yes Normal oral and palatal mucosa present Eyes: General: appearance normal, both eyes and all related structures Neck: Neck: normal visual inspection and full ROM Chest: Chest palpation & inspection: normal inspection of the chest and normal palpation of entire chest wall Resp: Effort & Inspection: normal respiratory effort Auscultation: clear to auscultation bilaterally Cardio: Jugular venous distension: no JVD Palpation: normal PMI Rate: regular rate Heart sounds: S1 normal heart sound present and S2 normal heart sound present GI: Inspection: normal to inspection GI Palp: No abdominal tenderness Neuro: General: oriented to person, oriented to place, oriented to time and patient oriented x3 Cranial nerves: Yes CN's II-XII intact bilaterally Speech: normal speech Gait exam (Neuro): Normal gait present Motor exam (neuro): 5/5 motor strength present throughout Sensory Exam: normal sensation Psych: Appearance: grossly normal Objective Data Vital Signs Vital Signs: Vital Signs - 24 hr 11/26/20 15:00 11/26/20 15:01 11/26/20 15:02 Temperature 37.2 C Pulse Rate 69 68 69 Respiratory Rate 16 17 17 Blood Pressure 102/57 L 102/57 L Puls
--- NOTE | 2020-11-27 10:50 | PC.NURSE ---
Spoke with Lyn Wade, the patient's daughter, about receiving Epogen as a Taoist. Lyn states the patient normally receives Procrit injections per Dr Collado as an outpatient, and okays the use of Epogen at this time.
[2020-11-27 11:07] LABS: Ammonia < 9 umol/L (9-30)
[2020-11-27] MEDS: PARoxetine 20 MG TABLET PO (11:12)
[2020-11-27] MEDS: PANTOPRAZOLE 40 MG TABLET PO (11:12)
[2020-11-27] MEDS: FERROUS SULFATE 324 MG TABLET PO (11:14)
[2020-11-27] MEDS: ASPIRIN 81 MG CHEWABLE TABLET PO (11:14)
[2020-11-27] MEDS: FOLIC ACID 1 MG TABLET PO (11:14)
[2020-11-27] MEDS: FUROSEMIDE 20 MG TABLET PO (11:14)
[2020-11-27] MEDS: EPOETIN ALFA 4,000 UNITS/ML VIAL 4000 UNITS SUB-Q (11:15)
[2020-11-27] MEDS: LACTULOSE 20 GM/30 ML UDC PO (11:15)
[2020-11-27] MEDS: CYANOCOBALAMIN 500 MCG TABLET PO (11:15)
[2020-11-27] MEDS: methylPREDNISolone SOD SUCC 125 MG VIAL 80 MG IV PUSH ×2 (11:16→21:36)
[2020-11-27] MEDS: IRON SUCROSE COMPLEX 200 MG in SODIUM CHLORIDE 0.9% IV 50 ML 120 MG IVPB (11:16)
[2020-11-27] MEDS: LORazepam (*CRX) 0.5 MG TABLET PO (13:16)
[2020-11-27] MEDS: IPRATROPIUM BR 0.02% INH SOLN 0.5 MG/2.5 ML VIAL INHALATION ×2 (14:38→21:44)
[2020-11-27] MEDS: ALBUTEROL SULFATE NEB 2.5 MG/0.5 ML INH INHALATION ×2 (14:38→21:44)
--- NOTE | 2020-11-27 17:48 | PC.NURSE ---
Patient only able to void once at 0800 with minimal output and complains of fullness and pain to her lower abdomen. Bladder scan reveals <999 mL. Obtained an order to place a Mg catheter. With multiple failed attempts to place an indwelling catheter, a straight cath was used for the sturdier catheter. Obtained and order for an urology consult. Spoke with Dr Cameron who instructed to place a 14 F coude mg if needed overnight for retention, but the patient will be seen in the AM for the official consult.
[2020-11-27] MEDS: QUEtiapine FUMARATE 12.5 MG TABLET PO (21:36)
[2020-11-28] VITALS (14 sets, daily range): BP systolic 111–126; BP diastolic 42–59; PULSE 56–78; RESP 15–24; TEMP 35.7–37.5; O2SAT 91–97
[2020-11-28 07:04] LABS: Immature Platelet Fraction Pct 18.6 % (0.9-11.2); Mean Corpuscular Hemoglobin 37.1 pg (26-34); Mean Corpuscular Volume 115.9 fl (80-100); Platelet Count Result 199 k/mm3 (150-375); Red Cell Distribution Width 23.9 % (11.5-14.5); White Blood Count 3.4 K/mm3 (4.5-10.0)
[2020-11-28 07:14] LABS: Hematocrit 19.7 % (37.0-47.0); Hemoglobin 6.3 g/dL (12.0-15.0)
--- NOTE | 2020-11-28 08:46 | P.PNIM_ITS ---
Progress Note: A&P Assessment and Plan (1) Chronic respiratory failure with hypoxia: Code(s): J96.11 - Chronic respiratory failure with hypoxia Status: Chronic Assessment and Plan: Will continue with BiPAP. Monitor ABG oxygen and carbon dioxide. Will also give steroid and p.o. antibiotics. For possible bronchitis. (2) Metastatic lung cancer (metastasis from lung to other site): Code(s): C34.90 - Malignant neoplasm of unspecified part of unspecified bronchus or lung Status: Chronic Assessment and Plan: Stable no acute changes. Will continue to monitor. (3) Profound anemia: Code(s): D64.9 - Anemia, unspecified Status: Acute Assessment and Plan: Patient is a Orthodox. Will use iron transfusion. Will also give Epogen. Monitor hemoglobin. (4) MDS (myelodysplastic syndrome): Code(s): D46.9 - Myelodysplastic syndrome, unspecified Status: Acute Assessment and Plan: Continue monitor hemoglobin. (5) Altered mental status: Qualifiers: Altered mental status type: unspecified Qualified Code(s): R41.82 - Altered mental status, unspecified Code(s): R41.82 - Altered mental status, unspecified Status: Acute Assessment and Plan: Most likely secondary to high carbon dioxide will continue with BiPAP. Also the blood culture and urine culture. Subjective Date/time seen: 11/28/20 08:46 Interval history: Patient was seen during the morning rounds today. Patient is feeling slightly better. Patient is on BiPAP. Patient denies any chest pain. No nausea vomiting. Mood stable. Review of Systems Review of Systems: All systems reviewed & are unremarkable except as noted in HPI and below Constitutional: Constitutional: Reports as per HPI and Reports no additional constitutional complaints Eyes: Eyes: Reports as per HPI and Reports no additional eye complaints ENT: Reports system reviewed and no additional complaints, except as documented and Reports Normal hearing present Cardiovascular: Cardiovascular: Reports as per HPI and Reports no additional cardiovascular complaints Respiratory: Respiratory: Reports as per HPI, Reports no additional respiratory complaints and Reports no additional respiratory complaints Gastrointestinal: Gastrointestinal: Reports as per HPI and Reports no additional gastrointestinal complaints Musculoskeletal: Musculoskeletal: Reports no additional musculoskeletal complaints Integumentary/Breasts: Skin/Breast: Reports system reviewed and no additional complaints, except as docu and Reports as per HPI Neurologic: Reports system reviewed and no additional complaints, except as documented, Reports as per HPI and Reports Normal hearing present Psychiatric: Psychiatric: Reports no additional psychiatric complaints and Reports as per HPI Endocrine: Endocrine: Reports no additional endocrine complaints and Reports as per HPI Hematologic/Lymphatic: Hematologic/Lymphatic: Reports no additional hematologic/lymphatic complaints Allergic/Immunologic: Allergic/Immunologic: Reports no additional allergic/immunologic complaints Exam Const: General: cooperative, comfortable, no acute distress, well developed, alert and awake Nutritional Appearance: average body habitus and well nourished Orientation/consciousness: oriented to person, oriented to place, oriented to time and patient oriented x3 HENMT: Head: normal to inspection, No palpable skull fra
[2020-11-28] MEDS: MENTHOL 10% / METHYL SALICYLATE 15% 57 GM TUBE 1 APPLIC TOPICAL (09:25)
[2020-11-28] MEDS: methylPREDNISolone SOD SUCC 125 MG VIAL 80 MG IV PUSH ×2 (09:25→20:26)
[2020-11-28] MEDS: PARoxetine 20 MG TABLET PO (09:26)
[2020-11-28] MEDS: ASPIRIN 81 MG CHEWABLE TABLET PO (09:26)
[2020-11-28] MEDS: PANTOPRAZOLE 40 MG TABLET PO (09:26)
[2020-11-28] MEDS: FUROSEMIDE 20 MG TABLET PO ×2 (09:26→16:29)
[2020-11-28] MEDS: CYANOCOBALAMIN 500 MCG TABLET PO (09:26)
[2020-11-28] MEDS: FERROUS SULFATE 324 MG TABLET PO (09:27)
[2020-11-28] MEDS: LACTULOSE 20 GM/30 ML UDC PO (09:27)
[2020-11-28] MEDS: FOLIC ACID 1 MG TABLET PO (09:27)
[2020-11-28] MEDS: ALBUTEROL SULFATE NEB 2.5 MG/0.5 ML INH INHALATION ×3 (10:07→21:46)
[2020-11-28] MEDS: IPRATROPIUM BR 0.02% INH SOLN 0.5 MG/2.5 ML VIAL INHALATION ×3 (10:08→21:46)
--- NOTE | 2020-11-28 11:00 | PC.NURSE ---
Transfer received from IMU per bed. Report received from JH Grubbs.
--- NOTE | 2020-11-28 11:05 | PC.NURSE ---
This patient, Lindsay Brown, was transferred to [facility] on 11/28/20 at 1050. Personal belongings sent with patient. Report given to Nina PEÑALOZA. Appropriate documentation sent with patient.
--- NOTE | 2020-11-28 11:49 | WPDURCON ---
Assessment and Plan Assessment and plan (1) Urinary retention: Code(s): R33.9 - Retention of urine, unspecified Status: Acute Assessment and Plan: Was found to be in retention; she is comorbid with widely metastatic lung ca. I would stop oxybutynin as this may have contributed to both confusion and retention. If she recovers and is to be discharge, can attempt void trial the day prior. She may consider continuing the catheter indefinitely which would not be unreasonable. Urology Consult Note HPI Date Seen: 11/28/20 Requesting Physician: Chidi Rosen MD Primary Care Provider: SYSTEM SAFETY MANAGER PHYSICIAN Consult Narrative Narrative: Lindsay Brown is a 80 year old female with no known urologic history admitted for SOB. She was bladder scanned yesterday which read >1L. I spoke with nursing who were having difficulty cathing her. They eventually were able to straight cath, and then were able to place a 14F coude catheter. SHe denies any significant bladder issues at baseline or urologic history, though she is a poor historian. Review of Systems Review of Systems: All systems reviewed & are unremarkable except as noted in HPI and below PMFSH Past Medical History Medical History Asthma Chronic respiratory failure with hypoxia On 2 L per nasal cannula Closed fracture of right hip requiring operative repair Community acquired pneumonia COPD (chronic obstructive pulmonary disease) Dementia Depression Dyslipidemia History of leukemia MDS MDS (myelodysplastic syndrome) Metastatic lung cancer (metastasis from lung to other site) Pneumonia Profound anemia S/P ORIF (open reduction internal fixation) fracture Right hip UTI (urinary tract infection) Surgical History Surgical History History of cholecystectomy Family History Family History Mother Leukemia Social History Social History Social History: The patient is listed as a full code. She has 3 children, 2 girls and 1 boy. She listed both of her children as a durable power senior attorney for healthcare. She was a homemaker and is now. She is a Jehovah Witness and does not receive any blood products. Patient is a former smoker. Smoking packs per day: 1 Smoking cigarettes per day: 20.0 Years smoked: 60 Smoking pack-years: 60.00 Smoking status: Former smoker Tobacco type: cigarettes Alcohol intake: never Substance use: never Gender identity (if verbalized by the patient): Female Spiritual care concerns: No Agree to blood products: No Meds Home Medications and Allergies Home Medications Medication Instructions Recorded Confirmed Type Biofreeze (menthol) 1 applic TOPICAL Q4H PRN 09/02/19 11/27/20 History Flovent HFA 2 puff INHALATION BID 09/02/19 11/27/20 History acetaminophen [Tylenol] 650 mg PO Q4H PRN 09/02/19 11/27/20 History aspirin 81 mg PO DAILY 09/02/19 11/27/20 History guaifenesin [Mucinex] 600 mg PO Q6H PRN 09/02/19 11/27/20 History ipratropium-albuterol 0.5 - 3 ml INHALATION TID 09/02/19 11/27/20 History ipratropium-albuterol 3 ml INHALATION Q6H PRN 09/02/19 11/27/20 History magnesium hydroxide [Milk of 10 ml PO DAILY PRN 09/02/19 11/27/20 History Magnesia] omeprazole 20 mg PO DAILY 09/02/19 11/27/20 History oxybutynin chloride 5 mg PO HS 09/02/19 11/27/20 History paroxetine HCl 20 mg PO DAILY 09/02/19 11/27/20 History polyethylene glycol 3350 [Miralax] 17 g PO DAILY PRN 09/02/19 11/27/20 History sennosides-docusate sodium [Senna 2 tab-cap PO HS PRN 09/02/19 11/27/20 History with Docusate Sodium] ferrous sulfate 325 mg PO DAILY #30 tablet 09/06/19 11/27/20 Rx lorazepam 0.5 mg PO Q8H PRN 30 Days tablet 09/06/19 11/27/20 Rx cyanocobalamin (vitamin B-12) 500 mcg PO
[2020-11-28] MEDS: LORazepam (*CRX) 0.5 MG TABLET PO ×2 (12:07→20:52)
[2020-11-28] MEDS: ACETAMINOPHEN 325 MG TABLET 650 MG PO (14:30)
[2020-11-28] MEDS: QUEtiapine FUMARATE 12.5 MG TABLET PO (20:25)
[2020-11-29] VITALS (10 sets, daily range): BP systolic 130–150; BP diastolic 54–62; PULSE 66–89; RESP 20–22; TEMP 36.3–37.4; O2SAT 92–100
[2020-11-29] MEDS: FERROUS SULFATE 324 MG TABLET PO (07:38)
[2020-11-29 07:53] LABS: Glucose Point of Care 100 (65-105)
[2020-11-29] MEDS: MENTHOL 10% / METHYL SALICYLATE 15% 57 GM TUBE 1 APPLIC TOPICAL (08:07)
[2020-11-29] MEDS: LORazepam (*CRX) 0.5 MG TABLET PO (08:07)
[2020-11-29] MEDS: LACTULOSE 20 GM/30 ML UDC PO (08:07)
[2020-11-29] MEDS: guaiFENesin 12 HR 600 MG TABCR PO (08:07)
[2020-11-29] MEDS: ASPIRIN 81 MG CHEWABLE TABLET PO (08:08)
[2020-11-29] MEDS: PANTOPRAZOLE 40 MG TABLET PO (08:08)
[2020-11-29] MEDS: PARoxetine 20 MG TABLET PO (08:08)
[2020-11-29] MEDS: CYANOCOBALAMIN 500 MCG TABLET PO (08:08)
[2020-11-29] MEDS: methylPREDNISolone SOD SUCC 125 MG VIAL 80 MG IV PUSH ×2 (08:08→20:36)
[2020-11-29] MEDS: IPRATROPIUM BR 0.02% INH SOLN 0.5 MG/2.5 ML VIAL INHALATION ×3 (08:48→20:19)
[2020-11-29] MEDS: ALBUTEROL SULFATE NEB 2.5 MG/0.5 ML INH INHALATION ×3 (08:49→20:18)
[2020-11-29] MEDS: FOLIC ACID 1 MG TABLET PO (09:12)
[2020-11-29] MEDS: FUROSEMIDE 20 MG TABLET PO ×2 (09:12→16:55)
--- NOTE | 2020-11-29 10:04 | PM.IMPN ---
Progress Note: A&P Assessment and Plan (1) Chronic respiratory failure with hypoxia: Code(s): J96.11 - Chronic respiratory failure with hypoxia Status: Chronic Assessment and Plan: Will continue with BiPAP. Monitor ABG oxygen and carbon dioxide. Will also give steroid and p.o. antibiotics. For possible bronchitis. (2) Metastatic lung cancer (metastasis from lung to other site): Code(s): C34.90 - Malignant neoplasm of unspecified part of unspecified bronchus or lung Status: Chronic Assessment and Plan: Stable no acute changes. Will continue to monitor. (3) Profound anemia: Code(s): D64.9 - Anemia, unspecified Status: Acute Assessment and Plan: Patient is a Restorationist. Will use iron transfusion. Will also give Epogen. Monitor hemoglobin. (4) MDS (myelodysplastic syndrome): Code(s): D46.9 - Myelodysplastic syndrome, unspecified Status: Acute Assessment and Plan: Continue monitor hemoglobin. (5) Altered mental status: Qualifiers: Altered mental status type: unspecified Qualified Code(s): R41.82 - Altered mental status, unspecified Code(s): R41.82 - Altered mental status, unspecified Status: Acute Assessment and Plan: Most likely secondary to high carbon dioxide will continue with BiPAP. Also the blood culture and urine culture. Subjective Date/time seen: 11/29/20 10:04 Interval history: Patient was seen during the morning rounds today. Patient is feeling slightly better. Patient is on BiPAP. Patient denies any chest pain. No nausea vomiting. Mood stable. No new complaints. Review of Systems Review of Systems: All systems reviewed & are unremarkable except as noted in HPI and below Constitutional: Constitutional: Reports as per HPI and Reports no additional constitutional complaints Eyes: Eyes: Reports as per HPI and Reports no additional eye complaints ENT: Reports system reviewed and no additional complaints, except as documented and Reports Normal hearing present Cardiovascular: Cardiovascular: Reports as per HPI and Reports no additional cardiovascular complaints Respiratory: Respiratory: Reports as per HPI, Reports no additional respiratory complaints and Reports no additional respiratory complaints Gastrointestinal: Gastrointestinal: Reports as per HPI and Reports no additional gastrointestinal complaints Musculoskeletal: Musculoskeletal: Reports no additional musculoskeletal complaints Integumentary/Breasts: Skin/Breast: Reports system reviewed and no additional complaints, except as docu and Reports as per HPI Neurologic: Reports system reviewed and no additional complaints, except as documented, Reports as per HPI and Reports Normal hearing present Psychiatric: Psychiatric: Reports no additional psychiatric complaints and Reports as per HPI Endocrine: Endocrine: Reports no additional endocrine complaints and Reports as per HPI Hematologic/Lymphatic: Hematologic/Lymphatic: Reports no additional hematologic/lymphatic complaints Allergic/Immunologic: Allergic/Immunologic: Reports no additional allergic/immunologic complaints Exam Const: General: cooperative, comfortable, no acute distress, well developed, alert and awake Nutritional Appearance: average body habitus and well nourished Orientation/consciousness: oriented to person, oriented to place, oriented to time and patient oriented x3 HENMT: Head: normal to inspection, No palpable skull fracture present, normocephalic and atraumatic Ears: hearing grossly normal bilaterally and external ears normal General nose exam: Normal external nose present, Normal nares present and No nasal polyps present Face and sinus: normal facial exam Mouth: Yes Normal oral and palatal mucosa present Eyes: General: appearance normal, both eyes and all related structures Alignment and Position: alignment normal Periorbital: periorbital findings normal E
[2020-11-29] MEDS: QUEtiapine FUMARATE 12.5 MG TABLET PO (20:36)
[2020-11-29 21:22] LABS: SARS-CoV-2 RNA PCR Negative
[2020-11-30] VITALS (10 sets, daily range): BP systolic 124–131; BP diastolic 50–58; PULSE 65–86; RESP 14–20; TEMP 36–36.7; O2SAT 92–97
[2020-11-30 06:24] LABS: Estimated CRCL calculation 56 ml/min; Estimated Glomerular Filt Rate > 60
[2020-11-30] MEDS: ALBUTEROL SULFATE NEB 2.5 MG/0.5 ML INH INHALATION ×3 (08:48→19:59)
[2020-11-30] MEDS: IPRATROPIUM BR 0.02% INH SOLN 0.5 MG/2.5 ML VIAL INHALATION ×3 (08:48→19:59)
[2020-11-30] MEDS: LACTULOSE 20 GM/30 ML UDC PO (09:13)
[2020-11-30] MEDS: FERROUS SULFATE 324 MG TABLET PO (09:13)
[2020-11-30] MEDS: ASPIRIN 81 MG CHEWABLE TABLET PO (09:13)
[2020-11-30] MEDS: EPOETIN ALFA 4,000 UNITS/ML VIAL 4000 UNITS SUB-Q (09:13)
[2020-11-30] MEDS: CYANOCOBALAMIN 500 MCG TABLET PO (09:13)
[2020-11-30] MEDS: FUROSEMIDE 20 MG TABLET PO ×2 (09:13→17:01)
[2020-11-30] MEDS: PANTOPRAZOLE 40 MG TABLET PO (09:13)
[2020-11-30] MEDS: FOLIC ACID 1 MG TABLET PO (09:13)
[2020-11-30] MEDS: PARoxetine 20 MG TABLET PO (09:13)
[2020-11-30] MEDS: methylPREDNISolone SOD SUCC 125 MG VIAL 80 MG IV PUSH ×2 (09:14→20:28)
--- NOTE | 2020-11-30 10:20 | PM.DS ---
DS: Admitting Diagnosis Admitting Diagnosis Admitting Diagnosis: UTI Chronic anemia History of cancers Mental status change DS: Discharge Diagnosis Discharge Diagnosis (1) Chronic respiratory failure with hypoxia: Code(s): J96.11 - Chronic respiratory failure with hypoxia Status: Chronic Assessment and Plan: Will continue with BiPAP. Monitor ABG oxygen and carbon dioxide. Will also give steroid and p.o. antibiotics. For possible bronchitis. (2) Metastatic lung cancer (metastasis from lung to other site): Code(s): C34.90 - Malignant neoplasm of unspecified part of unspecified bronchus or lung Status: Chronic Assessment and Plan: Stable no acute changes. Will continue to monitor. (3) Profound anemia: Code(s): D64.9 - Anemia, unspecified Status: Acute Assessment and Plan: Patient is a Yarsani. Will use iron transfusion. Will also give Epogen. Monitor hemoglobin. (4) MDS (myelodysplastic syndrome): Code(s): D46.9 - Myelodysplastic syndrome, unspecified Status: Acute Assessment and Plan: Continue monitor hemoglobin. (5) Altered mental status: Qualifiers: Altered mental status type: unspecified Qualified Code(s): R41.82 - Altered mental status, unspecified Code(s): R41.82 - Altered mental status, unspecified Status: Acute Assessment and Plan: Most likely secondary to high carbon dioxide will continue with BiPAP. Also the blood culture and urine culture. DS: Summary Hospital Course Hospital Course: 80 years old female with history of metastatic lung cancer, myelodysplastic syndrome was admitted complains of a metastatic changes. Patient urine culture shows that patient has staphylococcal infection. Patient blood cultures were negative. Except for coagulase negative staph. Patient physical examination the was normal except for mild mental status change. Patient was given IV antibiotics. Today patient is feeling better so patient was discharged back senior care stable condition will repeat urine culture outpatient next week. Monitor hemoglobin outpatient. Condition stable time of discharge. Time spent discussing smoking cessation with patient: more than 10 minutes Status at Discharge Cognitive/behavioral status at discharge: Stable Functional status at discharge: uses cane/walker Overall status at discharge: patient is back to baseline Time Spent with Patient Time attestation: Total time spent providing and/or coordinating discharge services: Time spent: Greater than 30 minutes Specific discharge activities: Stable Exam Const: General: cooperative, comfortable, no acute distress, well developed, alert and awake Nutritional Appearance: average body habitus and well nourished Orientation/consciousness: oriented to person, oriented to place, oriented to time and patient oriented x3 HENMT: Head: normal to inspection, No palpable skull fracture present, normocephalic and atraumatic Ears: hearing grossly normal bilaterally and external ears normal General nose exam: Normal external nose present, Normal nares present and No nasal polyps present Face and sinus: normal facial exam Mouth: Yes Normal oral and palatal mucosa present Eyes: General: appearance normal, both eyes and all related structures Alignment and Position: alignment normal Periorbital: periorbital findings normal Eyelids: eyelids normal Conjunctivae: conjunctivae normal Sclera: sclerae normal Cornea: corneas normal Pupils: Equal, round and reactive pupils present and Pupil accommodation reflex normal EOM: EOMs intact bilaterally Neck: Neck: normal visual inspection, full ROM, no lymphadenopathy, trachea midline and supple Thyroid: thyroid normal Carotids: normal carotid upstroke Lymphatic: no lymphadenopathy noted Chest: Chest palpation & inspection: normal inspection of the chest and normal palpation of entire chest wall Resp: Eff
[2020-11-30] MEDS: CIPROFLOXACIN 250 MG TABLET PO ×2 (11:19→21:07)
[2020-11-30] MEDS: QUEtiapine FUMARATE 12.5 MG TABLET PO (20:28)
[2020-12-01 06:43] VITALS: BP 125/54; PULSE 75; RESP 20; TEMP 36.4; O2SAT 96
[2020-12-01] MEDS: ALBUTEROL SULFATE NEB 2.5 MG/0.5 ML INH INHALATION ×2 (07:45→13:43)
[2020-12-01] MEDS: IPRATROPIUM BR 0.02% INH SOLN 0.5 MG/2.5 ML VIAL INHALATION ×2 (07:45→13:43)
[2020-12-01 07:46] VITALS: PULSE 84; RESP 20; O2SAT 92
[2020-12-01 07:58] VITALS: PULSE 85; RESP 20
[2020-12-01] MEDS: CIPROFLOXACIN 250 MG TABLET PO (11:01)
[2020-12-01] MEDS: ASPIRIN 81 MG CHEWABLE TABLET PO (11:01)
[2020-12-01] MEDS: PARoxetine 20 MG TABLET PO (11:01)
[2020-12-01] MEDS: FOLIC ACID 1 MG TABLET PO (11:01)
[2020-12-01] MEDS: FERROUS SULFATE 324 MG TABLET PO (11:01)
[2020-12-01] MEDS: CYANOCOBALAMIN 500 MCG TABLET PO (11:01)
[2020-12-01] MEDS: PANTOPRAZOLE 40 MG TABLET PO (11:01)
[2020-12-01] MEDS: LACTULOSE 20 GM/30 ML UDC PO (11:02)
[2020-12-01] MEDS: methylPREDNISolone SOD SUCC 125 MG VIAL 80 MG IV PUSH (11:02)
[2020-12-01] MEDS: FUROSEMIDE 20 MG TABLET PO ×2 (11:02→16:10)
[2020-12-01 12:49] LABS: Vancomycin Trough 9.5 ug/mL (10.0-20.0)
[2020-12-01 13:44] VITALS: PULSE 82; RESP 20
[2020-12-01 13:54] VITALS: PULSE 85; RESP 20
[2020-12-01 13:56] LABS: SARS-CoV-2 RNA PCR Negative
--- NOTE | 2020-12-01 14:32 | PM.DS ---
DS: Admitting Diagnosis Admitting Diagnosis Admitting Diagnosis: Altered mental status DS: Discharge Diagnosis Discharge Diagnosis (1) Altered mental status: Qualifiers: Altered mental status type: unspecified Qualified Code(s): R41.82 - Altered mental status, unspecified Code(s): R41.82 - Altered mental status, unspecified Status: Acute (2) Chronic respiratory failure with hypoxia: Code(s): J96.11 - Chronic respiratory failure with hypoxia Status: Chronic (3) Metastatic lung cancer (metastasis from lung to other site): Code(s): C34.90 - Malignant neoplasm of unspecified part of unspecified bronchus or lung Status: Chronic (4) Profound anemia: Code(s): D64.9 - Anemia, unspecified Status: Acute (5) MDS (myelodysplastic syndrome): Code(s): D46.9 - Myelodysplastic syndrome, unspecified Status: Acute (6) Urinary retention: Code(s): R33.9 - Retention of urine, unspecified Status: Acute DS: Summary Hospital Course Reason for hospitalization: 80-year-old female with chronic respiratory failure, COPD metastatic lung cancer here for altered mental status. Hospital Course: Patient had altered mental status for 2 weeks but seemed to worsen over the past 2 days with being lethargic. She is wheelchair-bound. She is home O2 dependent 2 L. ABG showed normal pH but pCO2 was 63 which is higher than her baseline. CT of the chest, abdomen and pelvis showing persistent right upper lobe mass without significant change consistent with the patient's known malignancy. There is also small nodule in the right upper lobe possible metastatic disease. Diffuse nonspecific lymphadenopathy noted that appears to be stable in size. She was started on BiPAP and repeat ABG improved. Her mental status also improved. TSH normal. Ammonia <9. UA negative. COVID negative (11/28/20). It was felt that her mental status changes were secondary to high carbon dioxide. Will continue with BiPAP at discharge. Urine Cx drawn the next day and grew out MACHO (50-100K colonies) and Enterococcus species (50-100K colonies); Blood culture (1of 2 bottles) grew coag negative staph. No fevers documented. WBC normal on admission and actually decreased to 3400 but she does have MDS. She is also very anemic with Hgb in the 6 range mostly but she is a Shinto and refused transfusion. She received iron transfusion and Epogen. Patient was treated with IV and oral antibiotics. Overall, not felt to have an infectious component to her symptoms so antibiotics will not be continued at discharge. Patient noted to be in urine retention. Patient's oxybutynin was stopped. Neurology was consulted and felt that this medication may be contributing to her confusion and retention. Rivera catheter placed. Rivera trial as an outpatient. Patient had clinical improvement. Patient's family wanted the patient at a different memory care unit and this was arranged. Patient discharged in stable condition on 12/01/20 Status at Discharge Cognitive/behavioral status at discharge: Patient is stable at discharge Time Spent with Patient Time attestation: Total time spent providing and/or coordinating discharge services: 35 minutes Time spent: Greater than 30 minutes Exam Narrative: Exam Narrative: AF 97.5 125/54 85 20 92% 2L Gen - NARD Chest -lungs clear anteriorly. Few rhonchi in the flanks. CV - RRR S1/S2 Abd - Soft, NT/ND, Positive BS -Rivera secured draining clear yellow urine. Ext - No pedal edema Neuro -alert but confused. Skin - Warm and dry DS: Data Data Completed and Pending Labs on day of discharge: Labs from last 24 hours 12/01/20 12/01/20 11:46 04:42 Vancomycin Trough 9.5 L SARS-CoV-2 RNA (RT-PCR) Negative Preliminary micro results at discharge 11/27/20 10:45 Blood Culture - Preliminary Blood Coag negative Staphylococcus 11/27/20 10:56 Blood Culture - Preliminary Bl
[2020-12-01 16:15] VITALS: BP 140/87; PULSE 81; RESP 16; TEMP 36.2; O2SAT 93
== END 2020-12-01 17:30 | disposition home health service (06) | DRG 690 ==
LOC: ANHED 16:40 → ANH3MEDSUR 19:58 → ANHIMU 21:58 → ANH3MED 11-28 23:53 → ANHIMU 12-03 16:12
PROVIDERS: Emergency Medicine; Family Medicine; Internal Medicine; Nurse Practitioner; Admitting Provider Internal Medicine; Emergency Provider Emergency Medicine; Visit Provider Internal Medicine
DX: N39.0 Urinary tract infection, site not specified (principal); J96.11 Chronic respiratory failure with hypoxia; C34.90 Malignant neoplasm of unspecified part of unspecified bronchus or lung; B95.61 Methicillin susceptible Staphylococcus aureus infection as the cause of diseases classified elsewhere; B95.2 Enterococcus as the cause of diseases classified elsewhere; B95.7 Other staphylococcus as the cause of diseases classified elsewhere; Z20.822 Contact with and (suspected) exposure to COVID-19; D46.9 Myelodysplastic syndrome, unspecified; R41.82 Altered mental status, unspecified; D64.9 Anemia, unspecified; Z53.1 Procedure and treatment not carried out because of patient's decision for reasons of belief and group pressure; R33.9 Retention of urine, unspecified; J44.9 Chronic obstructive pulmonary disease, unspecified; E78.5 Hyperlipidemia, unspecified; F03.90 Unspecified dementia, unspecified severity, without behavioral disturbance, psychotic disturbance, mood disturbance, and anxiety; F32.9 Major depressive disorder, single episode, unspecified; Z85.6 Personal history of leukemia; Z99.3 Dependence on wheelchair; Z99.81 Dependence on supplemental oxygen; Z90.49 Acquired absence of other specified parts of digestive tract; Z87.891 Personal history of nicotine dependence; E66.9 Obesity, unspecified; Z68.33 Body mass index [BMI] 33.0-33.9, adult
CPT/HCPCS: 36415; 36600; 51701; 70450; 71250; 74176; 80053; 80202; 81003; 82140; 82375; 82565; 82805; 82948; 83050; 83615; 83735; 84443; 85025; 85027; 85055; 86140; 87040; 87077; 87086; 87088; 87186; 93005; 94002; 94003; 94640; 97110; 97116; 97161; 97530; 99291; A9270; C9803; G0378; J1756; J2930; J3370; J7120; Q4081; U0003; U0005

== ENCOUNTER → 2020-12-26 01:21 | Outpatient (CLI) | payer MEDICARE, OTHER, SELFPAY ==
[2020-12-26 18:53] LABS: SARS-CoV-2 RNA PCR Negative
== END ==
PROVIDERS: Radiology Diagnostic Radiology; Visit Provider Internal Medicine Hematology & Oncology
DX: Z01.812 Encounter for preprocedural laboratory examination (principal); Z20.822 Contact with and (suspected) exposure to COVID-19
CPT/HCPCS: C9803; U0003; U0005

== ENCOUNTER 2020-12-29 01:45 | Day surgery (SDC) | payer MEDICARE, OTHER, SELFPAY ==
[2020-12-28 15:43] VITALS: BMI 30.1
--- NOTE | ~2020-12-29 | BM_ITS ---
EXAMINATION: CCL bone marrow asp w bx diag DATE: 12/29/2020 08:56 INDICATION: Myelodysplastic syndrome. TECHNIQUE: A time-out was performed to verify the patient's name, date of , and procedure to b e performed. The procedure including the risks, benefits, and alternatives was discussed with the pat ient. Risks discussed included bleeding and infection. The patient understood the risks and agreed to proceed. The skin overlying the left ilium was prepped and draped in usual sterile fashion. Anesth etic was administered with 1% lidocaine subcutaneously. 50 mcg fentanyl IV was given for pain control . An 11 gauge needle was inserted into the ilium with fluoroscopic guidance. Bone marrow was aspirat ed. An 8 gauge needle was then inserted into the ilium with fluoroscopic guidance. A core bone marrow biopsy was obtained. There were no immediate complications. Fluoroscopy exposure time was 0.0 minute s. The total number of images was 11. FINDINGS: Real-time fluoroscopy demonstrates a marker overlying the left posterior superior iliac spi ne. IMPRESSION: 1. Fluoro-guided bone marrow aspiration. 2. Fluoro-guided bone marrow core biopsy. Reviewed, dictated and finalized at location A.
[2020-12-29 07:52] LABS: Basophils Percent Auto 0.5 % (0.2-1.2); Eosinophils Absolute Auto 0.2 K/mm3 (0-0.3); Eosinophils Percent Auto 4.2 % (0-4.4); Immature Granulocyte Absolute 0.03 K/mm3 (0.00-0.031); Immature Granulocyte Percent A 0.7 % (0-0.5); Lymphocytes Absolute Auto 0.77 K/mm3 (0.9-3.2); Lymphocytes Percent Auto 18.9 % (18.3-44.2); Mean Corpuscular HGB Conc 31.7 g/dl (32-36); Mean Corpuscular Hemoglobin 36.7 pg (26-34); Mean Corpuscular Volume 115.6 fl (80-100); Mean Platelet Volume 12.9 fl (7.4-10.4); Monocytes Absolute Auto 0.4 K/mm3 (0.1-0.6); Monocytes Percent Auto 10.3 % (2.6-8.5); Neutrophils Absolute Auto 2.7 K/mm3 (1.3-6.7); Neutrophils Percent Auto 65.4 % (45.5-73.1); Platelet Count Result 385 k/mm3 (150-375); Red Cell Distribution Width 21.2 % (11.5-14.5); White Blood Count 4.1 K/mm3 (4.5-10.0)
[2020-12-29 07:55] LABS: Hematocrit 20.8 % (37.0-47.0); Hemoglobin 6.6 g/dL (12.0-15.0)
[2020-12-29 07:58] VITALS: BP 102/55; PULSE 72; RESP 16; TEMP 36.5; BMI 32.3
[2020-12-29 08:01] LABS: INR 0.9; Prothrombin Time 12.8 Seconds (11.1-14.7)
[2020-12-29 09:00] VITALS: BP 129/92; PULSE 70; RESP 18; O2SAT 94
[2020-12-29 09:15] VITALS: BP 114/52; PULSE 67; RESP 15; O2SAT 94
[2020-12-29 09:30] VITALS: BP 118/100; PULSE 68; RESP 15; O2SAT 94
[2020-12-29 10:01] VITALS: BP 101/46; PULSE 68; RESP 15; TEMP 36.4; O2SAT 97
--- NOTE | 2020-12-29 11:03 | SUR.PHASEII ---
Discharge instructions reviewed with patient and daughter with stated understanding -discharge packet sent with patient. Iv d/c'd with catheter intact. Patient discharged via wheelchair to family's vehicle to return to extended care facility.
== END 2020-12-29 10:30 | disposition home or self-care (01) ==
PROVIDERS: Referring Provider Internal Medicine Hematology & Oncology; Visit Provider Radiology Diagnostic Radiology
DX: D46.9 Myelodysplastic syndrome, unspecified (principal)
CPT/HCPCS: 36415; 38222; 85025; 85610; 88184; 88185; 88305; 88311; 88313; J3010; J7040

== ENCOUNTER 2021-01-27 12:43 | Inpatient (IN) | payer MEDICARE, OTHER, SELFPAY ==
[2021-01-27] VITALS (9 sets, daily range): BP systolic 109–120; BP diastolic 43–59; PULSE 74–84; RESP 13–96; TEMP 37.1–37.2; O2SAT 93–98; BMI 33.0
--- NOTE | ~2021-01-27 | CT_ITS ---
EXAMINATION: CTA chest PE protocol DATE: 01/30/2021 14:03 INDICATION: Cancer presenting with shortness of breath and hypoxia. TECHNIQUE: Computed tomography (CT) pulmonary angiogram of the chest was performed with 100 mL Omnipa que-[address]. [address] images were obtained during which catheter supplying the con trast disconnected during the course of the injection (<60 mm Omnipaque-350 was administered during t he initial injection). Additional 3D reconstructions utilizing coronal maximum intensity projection ( MIP) were performed. Automated exposure control and iterative reconstruction technique were employed. The dose-length product was 1573.26 mGy-cm. COMPARISON: None FINDINGS: Excellent contrast opacification of the pulmonary arteries. There is moderate streak artifact from de nse contrast in the superior vena cava and right atrium. Moderate scattered respiratory motion artifa ct. Together this decreases sensitivity, mild in the segmental pulmonary arteries and more significan tly in the smaller subsegmental pulmonary arteries particularly at the lung bases. No definite pulmon sunita motion identified. Mild emphysema. Small right pleural effusion. Dependent atelectasis in the oscar ateral lower lobes. Again seen is atelectasis in the posterior inferior right upper lobe peripheral t o a persistent approximately 3.1 x 1.5 cm spiculated nodule. 14 x 9 mm between nodule at the superior segment of the right upper lobe which is new since 11/26/2020 which given the rapid development favor s a benign infectious/inflammatory etiology. Unchanged chronic atelectasis/scarring at the caudal tip of the lingula. Cardiomegaly. Atherosclerotic coronary artery calcific location. No pericardial effusion. Aortic valv e calcification. Thoracic aorta is normal in caliber with no dissection. No pathologically enlarged t horacic lymphadenopathy. Cholecystectomy clips the gallbladder fossa. There is extensive pneumobilia beginning in the common bile duct and extending into the nondependent bile ducts and the left and ri ght hepatic lobes likely related to prior sphincterotomy. Cysts at the upper poles of both kidneys, t he largest on the right measuring 2.4 cm. Severe lower cervical and upper thoracic spondylosis. 3 to 4 mm anterolisthesis C7 on T1. There are bridging osteophytes at multiple levels in the lower thoraci c spine, consistent with diffuse idiopathic skeletal hyperostosis (DISH). IMPRESSION: 1. No pulmonary embolism. Sensitivity decreased in the segmental and more prominently in the smaller subsegmental pulmonary arteries in the lower lungs due to moderate respiratory motion artifact. 2. Persistent spiculated right upper lobe mass measuring 3.1 x 1.5 cm which be malignant, infectious or inflammatory in etiology. 3. 14 x 9 mm spiculated nodule in the superior segment of the right lower lobe which is developed in the 2 months since the most recent study which given the rapid dominant would favor infectious/inflam matory etiology over malignancy. 4. Mild emphysema. 5. Small right pleural effusion. 6. Cardiomegaly. Reviewed, dictated and finalized at location A. IMPRESSION: 1. No pulmonary embolism. Sensitivity decreased in the segmental and more promi nently in the smaller subsegmental pulmonary arteries in the lower lungs due to moderate respiratory motion artifact. 2. Persistent spiculated right upper lobe mass measuring 3.1 x 1.5 cm which be malignant, infectious or inflammatory in etiology. 3. 14 x 9 mm spiculated nodule in the superior segment of the right lower lobe which is developed in the 2 months since the most recent study which given the rapid dominant would favor infectious/inflammatory etiology over malignancy. 4. Mild emphysema. 5. Small right pleura
--- NOTE | ~2021-01-27 | CT_ITS ---
EXAMINATION: CT brain wo con EXAM DATE: 01/28/2021 00:37 INDICATION: Temporary change in awareness. TECHNIQUE: Spiral CT of the head was performed without contrast. Axial, coronal and sagittal images were reviewed. The dose-length product (DLP) for this examination was 681.00 mGy-cm. The exposure w as tailored according to patient size, and iterative reconstruction (ASIR) was used as additional dos e reduction technique. Comparison is made to prior examination from 11/26/2020. FINDINGS: There is no acute intraparenchymal hemorrhage. No evidence of intraparenchymal brain mass lesion. No evidence of acute infarction. Please note that initial head CT has limited sensitivity f or small or acute infarctions. There is moderate periventricular and subcortical hypodensity, nonspec ific but probably related to small vessel ischemic disease. There is mild prominence of the sulci a nd ventricles related to cerebral atrophy. There is intracranial carotid arteriosclerosis. There a re no extra-axial collections. There is no mass effect or midline shift. Patient has had bilateral ocular lens surgery. Soft tissue is unremarkable. Mild to moderate-sized right maxillary sinus muco us retention cyst. IMPRESSION: 1. No acute intracranial findings. 2. Chronic age related findings. Reviewed, dictated and finalized at location A.
--- NOTE | ~2021-01-27 | XR_ITS ---
EXAMINATION: XR chest 1V portable DATE: 01/27/2021 13:46 INDICATION: Dyspnea. TECHNIQUE: A single frontal view of the chest was obtained. COMPARISON: Chest single view 02/21/2020, chest CT 11/26/2020 FINDINGS: Skinfolds overlie right hemithorax. There is a mass in right midlung zone. There are airspa ce opacities in right mid and lower lung zones and left lower lung zone. No pleural effusion or pneum othorax. Cardiomegaly is noted. IMPRESSION: 1. Mass in right midlung zone, consistent with primary bronchogenic carcinoma and changes of radiatio n therapy. 2. Airspace opacities in right middle lower lung zones and left lower lung zone, consistent with atel ectasis versus treatment change versus pneumonia. 3. Cardiomegaly. Reviewed, dictated and finalized at location A. IMPRESSION: 1. Mass in right midlung zone, consistent with primary bronchogenic carcinoma a nd changes of radiation therapy. 2. Airspace opacities in right middle lower lung zones and left lower lung zone , consistent with atelectasis versus treatment change versus pneumonia. 3. Cardiomegaly.
--- NOTE | ~2021-01-27 | CT_ITS ---
EXAMINATION: CT abdomen pelvis w con INDICATION: Abdominal pain, lung cancer TECHNIQUE: Computed tomographic images of the abdomen and pelvis were obtained after the administrati on of 100 cc of Omnipaque 350 intravenous contrast. The dose-length product (DLP) was 1177.59 mGy-cm. Automated exposure control and iterative reconstruction technique were employed. COMPARISON: 11/26/2020 FINDINGS: There is a small right pleural effusion. Cardiomegaly is noted. There are minimal airspace opacities in the visualized lung bases. The gallbladder is surgically absent. There is mild enlargeme nt of the common bile duct and central intrahepatic ducts which is likely due to post cholecystectomy state. The liver, spleen, pancreas, and adrenal glands are normal. Cysts of the kidneys measure up t o 2.3 cm on the right. There is calcified atherosclerosis of the aorta and many of the other arteries . No pathologically enlarged abdominal or pelvic lymph nodes are identified. There is no free intrape ritoneal gas or evidence of bowel obstruction. There is a left inguinal hernia containing a short seg ment of nonobstructed small bowel. There is mild wall thickening of the urinary bladder. There is sev ere lumbar spondylosis with stable compression fractures of L3 and L5. Internal stabilization hardwar e is present in the proximal right femur. IMPRESSION: 1. Wall thickening of the urinary bladder which could be due to incomplete distention or possibly cys titis. 2. Cardiomegaly. 3. Opacities of the visualized lung bases, consistent with atelectasis. 4. Left inguinal hernia containing a short segment of nonobstructed small bowel. Reviewed, dictated and finalized at location B. IMPRESSION: 1. Wall thickening of the urinary bladder which could be due to incomplete dist ention or possibly cystitis. 2. Cardiomegaly. 3. Opacities of the visualized lung bases, consistent with atelectasis. 4. Left inguinal hernia containing a short segment of nonobstructed small bowel .
--- NOTE | ~2021-01-27 | US_ITS ---
EXAMINATION: US abdomen limited DATE: 01/28/2021 17:02 INDICATION: Right upper quadrant abdominal pain TECHNIQUE: Multiple grayscale and Doppler ultrasound images of the abdomen were obtained. COMPARISON: CT from yesterday FINDINGS: The head and body of the pancreas are normal. The pancreatic tail is obscured by bowel gas. The liver is normal with normal echogenicity and echotexture. No surface nodularity. Normal hepatope jean paul flow in the main portal vein. The gallbladder is surgically absent. The normal common bile duct m easures 6 mm. IMPRESSION: 1. Unremarkable postcholecystectomy ultrasound. Reviewed, dictated and finalized at location B.
[2021-01-27 14:55] LABS: Basophils Percent Auto 0.3 % (0.2-1.2); Eosinophils Absolute Auto 0.3 K/mm3 (0-0.3); Eosinophils Percent Auto 4.2 % (0-4.4); Immature Granulocyte Absolute 0.03 K/mm3 (0.00-0.031); Immature Granulocyte Percent A 0.5 % (0-0.5); Lymphocytes Absolute Auto 0.88 K/mm3 (0.9-3.2); Lymphocytes Percent Auto 14.4 % (18.3-44.2); Mean Corpuscular HGB Conc 30.7 g/dl (32-36); Mean Corpuscular Hemoglobin 34.7 pg (26-34); Mean Corpuscular Volume 112.9 fl (80-100); Mean Platelet Volume 12.9 fl (7.4-10.4); Monocytes Absolute Auto 0.4 K/mm3 (0.1-0.6); Monocytes Percent Auto 6.4 % (2.6-8.5); Neutrophils Absolute Auto 4.5 K/mm3 (1.3-6.7); Neutrophils Percent Auto 74.2 % (45.5-73.1); Platelet Count Result 352 k/mm3 (150-375); Red Blood Count 1.47 M/mm3 (4.2-5.4); Red Cell Distribution Width 22.5 % (11.5-14.5); White Blood Count 6.1 K/mm3 (4.5-10.0)
[2021-01-27 15:04] LABS: Prothrombin Time 13.5 Seconds (11.1-14.7)
[2021-01-27 15:05] LABS: Alanine Aminotransferase 6 U/L (4-35); Albumin Level 3.5 g/dL (3.5-5.1); Alkaline Phosphatase 63 U/L (38-126); Anion Gap 0 mmol/L (8-16); Aspartate Amino Transferase 24 U/L (14-36); Bilirubin,Total 0.4 mg/dL (0.2-1.3); Blood Urea Nitrogen 14 mg/dL (7-17); Calcium 8.2 mg/dL (8.4-10.2); Carbon Dioxide 39 mmol/L (22-30); Chloride 98 mmol/L (98-107); Estimated CRCL calculation 59 ml/min; Estimated Glomerular Filt Rate > 60; Glucose 99 mg/dL (65-105); Partial Thromboplastin Time 31.4 SECONDS (22.3-36.8); Potassium 3.8 mmol/L (3.4-5.0); Sodium 137 mmol/L (137-145)
[2021-01-27 15:07] LABS: Hematocrit 16.6 % (37.0-47.0); Hemoglobin 5.1 g/dL (12.0-15.0)
[2021-01-27 15:27] LABS: Hypochromasia 2+ (NORMAL); Large Platelets Present; Platelet Estimate Adequate (Adequate)
[2021-01-27 15:58] LABS: Add Urine Microscopic? YES; Appearance Urine Turbid (Clear); Bilirubin Urine Negative (Negative); Blood Urine 1+ (Negative); Color Urine Yellow (Yellow); Glucose Urine UA Negative (Negative); Ketones Urine Negative (Negative); Leukocyte Esterase Ur 3+ LEU/UL (Negative); Nitrate Urine Negative (Negative); Protein Urine 2+ mg/dL (Negative); RBC Urine 21-50 /hpf (0-2); Specific Grav Ur 1.012 (1.001-1.035); Squamous Epithelial Cell Urine Few /hpf (Few); Urobilinogen Urine Negative mg/dL (<2.0); WBC Clumps Urine Present /HPF; WBC Urine >75 /hpf
--- NOTE | 2021-01-27 17:36 | ED.GENADULT ---
HPI - General Adult General Chief complaint: Shortness of Breath/Dyspnea Stated complaint: low 02 sats, low hemoglobin Time Seen by Provider: 01/27/21 12:55 Source: RN notes reviewed History of Present Illness HPI narrative: Patient presents to emergency department from [facility] for anemia and weakness. Patient has a history of myelodysplastic syndrome and is followed by Dr. pantoja. States that she has been on keep up EPO which has been less effective. Per the daughter the patient had blood work done yesterday that showed a hemoglobin of 4.8. Patient is chronically on 2 L nasal cannula and has been feeling mildly more short of breath as well. Per the family the patient fell on Monday striking her right ribs x-rays were done at that time that were negative. The patient denies any fevers or chills abdominal pain nausea vomiting or any other symptoms Related Data Home Medications Medication Instructions Recorded Confirmed omeprazole 20 mg PO DAILY 09/02/19 01/22/21 calcium carbonate [Raeann-[place] 500 mg PO TID 12/29/20 01/22/21 Antacid] fluticasone propion-salmeterol 1 inh INHALATION Q12H 12/29/20 01/22/21 [Advair Diskus] zolpidem 5 mg PO HS PRN 12/29/20 01/22/21 Allergies Allergy/AdvReac Type Severity Reaction Status Date / Time latex Allergy Unknown Verified 01/27/21 14:42 Penicillins Allergy Unknown Verified 01/27/21 14:42 Review of Systems Review of Systems: Narrative: Gen.: Denies fevers or chills ENT: Denies congestion Respiratory: Reports shortness of breath CV: Denies chest pain or palpitations GI: Denies abdominal pain nausea, emesis or diarrhea denies burning, urgency, frequency or hematuria Musculoskeletal: Denies back pain or muscle pain Neuro: Reports weakness Skin: Denies rash Except as documented, all other systems reviewed and negative [facility] Past Medical History Medical History Asthma Chronic respiratory failure with hypoxia On 2 L per nasal cannula Closed fracture of right hip requiring operative repair Community acquired pneumonia COPD (chronic obstructive pulmonary disease) Dementia Depression Dyslipidemia History of leukemia MDS MDS (myelodysplastic syndrome) Metastatic lung cancer (metastasis from lung to other site) Pneumonia Profound anemia S/P ORIF (open reduction internal fixation) fracture Right hip UTI (urinary tract infection) Surgical History Surgical History History of cholecystectomy Family History Family History Mother Leukemia Social History Social History (Updated 01/27/21 @ 17:39 by Cristopher Gli DO) Social History: She has 3 children, 2 girls and 1 boy. She listed both of her children as a durable power regulatory attorney for healthcare. She was a homemaker and is now. She is a Jehovah Witness and does not receive any blood products. Patient is a former smoker. Smoking packs per day: 1 Smoking cigarettes per day: 20.0 Years smoked: 60 Smoking pack-years: 60.00 Smoking status: Former smoker Tobacco type: cigarettes Second hand tobacco smoke exposure: No Smoking end date: 10/16/18 Alcohol intake: never Substance use: never Substance use type: does not use Gender identity (if verbalized by the patient): Female Spiritual care concerns: No Agree to blood products: No Exam Narrative: Exam Narrative: APPEARANCE: No acute distress, nontoxic, resting in bed EYES: EOMI HEENT: Normocephalic, atraumatic, OMM RESPIRATORY: No respiratory distress Clear to auscultation bilaterally with no rhonchi wheezing or rales. CARDIOVASCULAR: Regular rate and rhythm without murmurs rubs or gallops. Chest tender to palpation of the right anterior lateral ribs 8 through 10 no overlying swelling or ecchymosis ABDOMINAL: Soft, nondistended, tender to palpation right up
--- NOTE | 2021-01-27 17:54 | PC.NURSE ---
Food tray ordered for pt
--- NOTE | 2021-01-27 20:18 | ADMGEN ---
This patient, Lindsay Brown, was admitted to 2 Medical Room 253-01. Patient/family oriented to hospital policies and general routines including ID bracelet, bed and alarms, visiting hours, pain management, procedures, bathroom and other care routines, personal items, smoking policy, room service/diet, and visiting hours. Information on how to activate the Rapid Response Team has been discussed. Patient/Family are encouraged to report perceived risks to care and to ask questions if they do not understand what they are told or what they should do.
[2021-01-27] MEDS: SODIUM CHLORIDE 0.9% IV 1,000 ML 75 ML IV CONT (20:47)
--- NOTE | 2021-01-27 21:42 | PM.IMHP ---
H&P: HPI History of Present Illness Date/Time: 01/27/21 21:42 Chief Complaint: Generalized weakness+ Narrative: This is an 80-year-old Jehovah Witness with known history of metastatic lung cancer, myelodysplastic syndrome, COPD, and chronic respiratory failure on 2 L of oxygen at home chronically among many other comorbidities who presented to the hospital secondary to low hemoglobin and generalized weakness. The patient was found to have a hemoglobin of 4.8 yesterday. The patient appears to be pleasantly demented and is only oriented to herself. She cannot tell me why she is here in the hospital but she does remember falling over the weekend. Currently she complains of ongoing shortness of breath, generalized weakness, and dizziness. She denies any fevers, chills, headache, chest pain, cough, abdominal pain, dysuria, hematuria, diarrhea, or rectal bleeding. She was evaluated emergency room today and routine labs demonstrated a hemoglobin of 5.1 and hematocrit of 16.6. Urinalysis was grossly abnormal with greater than 75 white blood cells. ER provider has consulted Dr. Collado and the patient has been treated with IV Levaquin for her likely UTI. The patient is a Jehovah Witness and refuses any blood products. No other complaints at this time. Review of Systems Review of Systems: All systems reviewed & are unremarkable except as noted in HPI and below PMFSH Past Medical History Medical History Asthma Chronic respiratory failure with hypoxia On 2 L per nasal cannula Closed fracture of right hip requiring operative repair Community acquired pneumonia COPD (chronic obstructive pulmonary disease) Dementia Depression Dyslipidemia History of leukemia MDS MDS (myelodysplastic syndrome) Metastatic lung cancer (metastasis from lung to other site) Pneumonia Profound anemia S/P ORIF (open reduction internal fixation) fracture Right hip UTI (urinary tract infection) Surgical History Surgical History History of cholecystectomy Family History Family History Mother Leukemia Father Asthma Social History Social History Social History: She has 3 children, 2 girls and 1 boy. She listed both of her children as a durable power sports attorney for healthcare. She was a homemaker and is now. She is a Jehovah Witness and does not receive any blood products. Patient is a former smoker. Smoking packs per day: 1 Smoking cigarettes per day: 20.0 Years smoked: 60 Smoking pack-years: 60.00 Smoking status: Former smoker Second hand tobacco smoke exposure: No Alcohol intake: never Substance use: never Substance use type: does not use Gender identity (if verbalized by the patient): Female Spiritual care concerns: Yes (Jehovah witness no blood) Agree to blood products: No Meds Home Medications and Allergies Home Medications Medication Instructions Recorded Confirmed Type omeprazole 20 mg PO DAILY 09/02/19 01/27/21 History aspirin 81 mg PO DAILY #30 tablet 11/30/20 01/27/21 Rx cyanocobalamin (vitamin B-12) 500 mcg PO DAILY #30 tablet 11/30/20 01/27/21 Rx [Vitamin B-12] ferrous sulfate 325 mg PO DAILY #30 tablet 11/30/20 01/27/21 Rx folic acid 1 mg PO DAILY #30 tablet 11/30/20 01/27/21 Rx furosemide 20 mg PO BID #60 tablet 11/30/20 01/27/21 Rx paroxetine HCl 20 mg PO DAILY #30 tablet 11/30/20 01/27/21 Rx polyethylene glycol 3350 [Miralax] 17 g PO DAILY PRN #30 ea 11/30/20 01/27/21 Rx quetiapine [Seroquel] 12.5 mg PO HS #30 tablet 11/30/20 01/27/21 Rx calcium carbonate [Raeann-[place] 1,000 mg PO TID PRN 12/29/20 01/27/21 History Antacid] fluticasone propion-salmeterol 1 inh INHALATION Q12H 12/29/20 01/27/21 History [Advair Diskus] zolpidem 5 mg PO HS PRN 12/29/20 01/27/21 History ac
[2021-01-28] VITALS (9 sets, daily range): BP systolic 100–134; BP diastolic 42–90; PULSE 74–95; RESP 20–22; TEMP 35.9–36.5; O2SAT 90–99
[2021-01-28 05:13] LABS: Basophils Percent Auto 0.3 % (0.2-1.2); Eosinophils Absolute Auto 0.2 K/mm3 (0-0.3); Eosinophils Percent Auto 3.6 % (0-4.4); Immature Granulocyte Absolute 0.05 K/mm3 (0.00-0.031); Immature Granulocyte Percent A 0.9 % (0-0.5); Lymphocytes Absolute Auto 0.73 K/mm3 (0.9-3.2); Lymphocytes Percent Auto 12.5 % (18.3-44.2); Mean Corpuscular Hemoglobin 35.3 pg (26-34); Mean Corpuscular Volume 113.7 fl (80-100); Monocytes Absolute Auto 0.4 K/mm3 (0.1-0.6); Monocytes Percent Auto 6.2 % (2.6-8.5); Neutrophils Absolute Auto 4.5 K/mm3 (1.3-6.7); Neutrophils Percent Auto 76.5 % (45.5-73.1); Platelet Count Result 337 k/mm3 (150-375); Red Blood Count 1.39 M/mm3 (4.2-5.4); Red Cell Distribution Width 21.3 % (11.5-14.5); White Blood Count 5.8 K/mm3 (4.5-10.0)
[2021-01-28 05:25] LABS: Anion Gap 0 mmol/L (8-16); Blood Urea Nitrogen 13 mg/dL (7-17); Calcium 8.1 mg/dL (8.4-10.2); Carbon Dioxide 38 mmol/L (22-30); Chloride 100 mmol/L (98-107); Estimated CRCL calculation 68 ml/min; Estimated Glomerular Filt Rate > 60; Glucose 89 mg/dL (65-105); Potassium 3.9 mmol/L (3.4-5.0); Sodium 138 mmol/L (137-145)
[2021-01-28 05:37] LABS: Hematocrit 15.8 % (37.0-47.0); Hemoglobin 4.9 g/dL (12.0-15.0)
[2021-01-28 05:39] LABS: Anisocytosis 2+ (NORMAL); Platelet Estimate Adequate (Adequate)
[2021-01-28 05:40] LABS: Hypochromasia 1+ (NORMAL)
--- NOTE | 2021-01-28 06:49 | PC.NURSE ---
Dr. Nicholson ordered to notify Dr. Collado of critical H&H. Tobias has been notified and no new orders received, he will see pt today.
[2021-01-28] MEDS: PARoxetine 20 MG TABLET PO (09:27)
[2021-01-28] MEDS: SENNOSIDES 8.6 MG TABLET PO (09:27)
[2021-01-28] MEDS: FERROUS SULFATE 324 MG TABLET PO (09:28)
[2021-01-28] MEDS: FUROSEMIDE 20 MG TABLET PO ×2 (09:28→16:38)
[2021-01-28] MEDS: PANTOPRAZOLE SOD SESQUIHYDRATE 20 MG TAB PO (09:28)
[2021-01-28] MEDS: FOLIC ACID 1 MG TABLET PO (09:28)
[2021-01-28] MEDS: CYANOCOBALAMIN 500 MCG TABLET PO (09:28)
[2021-01-28] MEDS: ALBUTEROL SULFATE NEB 2.5 MG/0.5 ML INH 5 MG INHALATION (11:30)
--- NOTE | 2021-01-28 14:03 | PC.NURSE ---
On 01/28/21, the student, [ Patience Arreola], provided care and completed [employer] documentation on this patient. I have reviewed the student's documentation and agree with the findings.
--- NOTE | 2021-01-28 15:55 | PM.IMPN ---
Progress Note: A&P Assessment and Plan (1) UTI (urinary tract infection): Code(s): N39.0 - Urinary tract infection, site not specified Status: Acute Assessment and Plan: UA shows possible urinary tract infection -history of Enterococcus UTI -continue Levaquin, add vanc -patient had urinary retention as well, Rivera has been placed (2) Urinary retention: Code(s): R33.9 - Retention of urine, unspecified Status: Acute Assessment and Plan: Rivera for now -voiding trial in a day or 2 (3) Symptomatic anemia: Code(s): D64.9 - Anemia, unspecified Status: Acute Assessment and Plan: Low but chronic anemia, likely due to multiple factors including metastatic lung disease and MDS -due to scientology believes, she is unable she received blood transfusions -patient is fully aware of the risk of this -she will continue to have lightheadedness and shortness of breath with this (4) Altered mental status: Qualifiers: Altered mental status type: unspecified Qualified Code(s): R41.82 - Altered mental status, unspecified Code(s): R41.82 - Altered mental status, unspecified Status: Acute Assessment and Plan: Likely secondary to underlying UTI versus possible metastatic disease to brain. -CT of the brain does not show any acute abnormalities -monitor (5) Abnormal urinalysis: Code(s): R82.90 - Unspecified abnormal findings in urine Status: Acute Assessment and Plan: As above (6) Metastatic lung cancer (metastasis from lung to other site): Qualifiers: Laterality: unspecified laterality Qualified Code(s): C34.90 - Malignant neoplasm of unspecified part of unspecified bronchus or lung Code(s): C34.90 - Malignant neoplasm of unspecified part of unspecified bronchus or lung Status: Chronic Assessment and Plan: Chronic (7) MDS (myelodysplastic syndrome): Code(s): D46.9 - Myelodysplastic syndrome, unspecified Status: Acute Assessment and Plan: Chronic (8) Chronic respiratory failure with hypoxia: Code(s): J96.11 - Chronic respiratory failure with hypoxia Status: Chronic Assessment and Plan: Patient is usually on 2 L at home and now is 99% on 3 -chest x-ray shows possible pneumonia. Levaquin and vancomycin for UTI are in place and we will continue with that Additional Plan RUQ u/s due to RUQ pain and fullness Time Spent With Patient Time with patient: 25 - 35 minutes Subjective Date/time seen: 01/28/21 15:55 Interval history: Pt is a 80-year-old female here for high anemia, UTI and shortness of breath. Patient was seen today and is slightly confused. A she knows where she is and her name but cannot tell me the year or the president. She states that she had some dizziness and lightheadedness earlier today but doing okay right now. She denies chest pain, nausea vomiting, fevers, chills, dysuria or frequency. Nurse states that the patient is confused intermittently and complains of shortness of breath intermittently. The breathing treatments did not appear to help. Review of Systems Review of Systems: All systems reviewed & are unremarkable except as noted in HPI and below Exam Narrative: Exam Narrative: General: Elderly patient resting comfortably in bed in no acute distress HEENT: normocephalic Neck: supple Neuro: Alert to herself and location but not the year or president. The patient seems to get confused occasionally on exam. She follows most commands CV:RRR with loud systolic murmur heard in all areas Resp: Occasional crackles and decreased breath sounds throughout the lungs, no wheezing or rhonchi. Abd: Soft, non distended. Hepatomegaly noted on exam with pain to palpation. Extremities: No swelling, erythema, or pain to palpation. Objective Data Vital Signs Vital Signs: Vital Signs - 24 hr 0
--- NOTE | 2021-01-28 18:03 | PDONCCN ---
HPI - Date of Consult Date/Time: 01/28/21 18:03 Requesting Physician: Martha Levine PA-C Primary Care Provider: UNKNOWN,DOCTOR - Consult Narrative Reason for consult: Myelodysplastic syndrome with 5q deletion Narrative: Lindsay Brown is a 80 year old female with diagnosis of myelodysplastic syndrome with 5q deletion. Patient was on Procrit on every 2 weeks basis and repeat bone marrow biopsy was performed recently that showed myelodysplasia with 5q deletion. Plan was to start her on Revlimid. Patient came into the hospital with generalized weakness. Labs showed hemoglobin of 4.8. Patient recently fell as well. She denies any fever chills. Denies any abdominal pain. Denies any dysuria hematuria or any other bleeding problems. UA was abnormal and was diagnosed with UTI. Patient is Jehovah Witness and would not take blood transfusion. Patient was on periodic Procrit injection in the last 1 was about 3 weeks ago. Review of Systems - Review of Systems All systems reviewed & are unremarkable except as noted in HPI and bel - Neurologic Reports confusion [facility] Medical History: Medical History (Last Reviewed 01/28/21 @ 02:39 by Vincent Nicholson MD) Asthma Chronic respiratory failure with hypoxia On 2 L per nasal cannula Closed fracture of right hip requiring operative repair Community acquired pneumonia COPD (chronic obstructive pulmonary disease) Dementia Depression Dyslipidemia History of leukemia MDS MDS (myelodysplastic syndrome) Metastatic lung cancer (metastasis from lung to other site) Pneumonia Profound anemia S/P ORIF (open reduction internal fixation) fracture Right hip UTI (urinary tract infection) Surgical History: Surgical History (Last Reviewed 01/28/21 @ 02:39 by Vincent Nicholson MD) History of cholecystectomy Family History: Family History (Last Reviewed 01/28/21 @ 02:39 by Vincent Nicholson MD) Mother Leukemia Father Asthma - Social History Social History: Social History (Last Reviewed 01/28/21 @ 02:39 by Vincent Nicholson MD) Gender Identity: Gender identity (if verbalized by the patient): Female Alcohol Use: Alcohol intake: never Substance Use: Substance use: never Substance use type: does not use Others: Spiritual care concerns: Yes Spiritual care concerns comment: Jehovah witness no blood Agree to blood products: No Smoking Status: Smoking status: Former smoker Second hand tobacco smoke exposure: No Smoking Pack-years: Smoking packs per day: 1 Smoking cigarettes per day: 20.0 Years smoked: 60 Smoking pack-years: 60.00 Meds Home Medications Medication Instructions Recorded Confirmed Type omeprazole 20 mg PO DAILY 09/02/19 01/27/21 History aspirin 81 mg PO DAILY #30 tablet 11/30/20 01/27/21 Rx cyanocobalamin (vitamin B-12) 500 mcg PO DAILY #30 tablet 11/30/20 01/27/21 Rx [Vitamin B-12] ferrous sulfate 325 mg PO DAILY #30 tablet 11/30/20 01/27/21 Rx folic acid 1 mg PO DAILY #30 tablet 11/30/20 01/27/21 Rx furosemide 20 mg PO BID #60 tablet 11/30/20 01/27/21 Rx paroxetine HCl 20 mg PO DAILY #30 tablet 11/30/20 01/27/21 Rx polyethylene glycol 3350 [Miralax] 17 g PO DAILY PRN #30 ea 11/30/20 01/27/21 Rx quetiapine [Seroquel] 12.5 mg PO HS #30 tablet 11/30/20 01/27/21 Rx calcium carbonate [[place] 1,000 mg PO TID PRN 12/29/20 01/27/21 History Antacid] fluticasone propion-salmeterol 1 inh INHALATION Q12H 12/29/20 01/27/21 History [Advair Diskus] zolpidem 5 mg PO HS PRN 12/29/20 01/27/21 History acetaminophen [Tylenol] 650 mg PO BID PRN 01/27/21 01/27/21 History albuterol 90 mcg INHALATION Q6H PRN 01/27/21 01/27/21 History albuterol sulfate [ProAir HFA] 2 puff INHALATION QID PRN 01/27/21 01/27/21 History docusate sodium 100 mg PO BID 01/27/21 01/27/21 History phenyleph-shark [id number] 1 applic RECTAL TID PRN 01/27/21 01/27/21 History [Preparation H] sennosides [
[2021-01-28] MEDS: EPOETIN ALFA-EPBX 10,000 UNITS/ML VIAL 20000 UNITS SUB-Q (21:35)
[2021-01-28] MEDS: ZOLPIDEM TARTRATE (*CRX) 5 MG TABLET PO (21:42)
[2021-01-28] MEDS: QUEtiapine FUMARATE 12.5 MG TABLET PO (21:42)
[2021-01-29] VITALS (10 sets, daily range): BP systolic 104–133; BP diastolic 47–53; PULSE 77–100; RESP 16–22; TEMP 36–36.2; O2SAT 93–99
[2021-01-29 05:37] LABS: Mean Corpuscular HGB Conc 31.3 g/dl (32-36); Mean Corpuscular Hemoglobin 35.7 pg (26-34); Mean Platelet Volume 12.9 fl (7.4-10.4); Platelet Count Result 335 k/mm3 (150-375); Red Blood Count 1.43 M/mm3 (4.2-5.4); Red Cell Distribution Width 21.2 % (11.5-14.5); White Blood Count 4.8 K/mm3 (4.5-10.0)
[2021-01-29 05:52] LABS: Blood Urea Nitrogen 9 mg/dL (7-17); Calcium 8.2 mg/dL (8.4-10.2); Carbon Dioxide > 40 mmol/L (22-30); Chloride 98 mmol/L (98-107); Estimated CRCL calculation 59 ml/min; Estimated Glomerular Filt Rate > 60; Glucose 94 mg/dL (65-105); Potassium 3.7 mmol/L (3.4-5.0); Sodium 140 mmol/L (137-145)
[2021-01-29 05:53] LABS: Hematocrit 16.3 % (37.0-47.0); Hemoglobin 5.1 g/dL (12.0-15.0)
[2021-01-29] MEDS: FUROSEMIDE 20 MG TABLET PO ×2 (08:47→16:34)
[2021-01-29] MEDS: FOLIC ACID 1 MG TABLET PO (08:47)
[2021-01-29] MEDS: PANTOPRAZOLE SOD SESQUIHYDRATE 20 MG TAB PO (08:47)
[2021-01-29] MEDS: FERROUS SULFATE 324 MG TABLET PO (08:47)
[2021-01-29] MEDS: CYANOCOBALAMIN 500 MCG TABLET PO (08:47)
[2021-01-29] MEDS: SENNOSIDES 8.6 MG TABLET PO (08:54)
--- NOTE | 2021-01-29 15:23 | PC.NURSE ---
On 01/29/21, the student, [Eloisa Fuchs ], provided care and completed [employer] documentation on this patient. I have reviewed the student's documentation and agree with the findings.
--- NOTE | 2021-01-29 16:12 | PM.IMPN ---
Progress Note: A&P Assessment and Plan (1) UTI (urinary tract infection): Code(s): N39.0 - Urinary tract infection, site not specified Status: Acute Assessment and Plan: Urine culture growing E coli -vancomycin and Levaquin stopped and ceftriaxone started -will do a voiding trial (2) Urinary retention: Code(s): R33.9 - Retention of urine, unspecified Status: Acute Assessment and Plan: Voiding trial (3) Symptomatic anemia: Code(s): D64.9 - Anemia, unspecified Status: Acute Assessment and Plan: Low but chronic anemia, likely due to multiple factors including metastatic lung disease and MDS -due to yarsanism believes, she is unable she received blood transfusions -patient is fully aware of the risk of this (4) Altered mental status: Qualifiers: Altered mental status type: unspecified Qualified Code(s): R41.82 - Altered mental status, unspecified Code(s): R41.82 - Altered mental status, unspecified Status: Acute Assessment and Plan: Improved -CT of the brain does not show any acute abnormalities -monitor (5) Abnormal urinalysis: Code(s): R82.90 - Unspecified abnormal findings in urine Status: Acute Assessment and Plan: As above (6) Metastatic lung cancer (metastasis from lung to other site): Qualifiers: Laterality: unspecified laterality Qualified Code(s): C34.90 - Malignant neoplasm of unspecified part of unspecified bronchus or lung Code(s): C34.90 - Malignant neoplasm of unspecified part of unspecified bronchus or lung Status: Chronic Assessment and Plan: Chronic -spoke with daughter who states that they recently had an appointment with the radiation oncologist who says that the cancer is stable and is not growing (7) MDS (myelodysplastic syndrome): Code(s): D46.9 - Myelodysplastic syndrome, unspecified Status: Acute Assessment and Plan: Chronic (8) Chronic respiratory failure with hypoxia: Code(s): J96.11 - Chronic respiratory failure with hypoxia Status: Chronic Assessment and Plan: Patient is usually on 2 L at home and doing well -she states she always wheezes and breathing treatment doesn't help. -chest x-ray shows possible pneumonia although she no longer has SOB and has no hypoxia Additional Plan RUQ u/s due to RUQ pain and fullness Subjective Date/time seen: 01/29/21 16:13 Interval history: Pt is a 80-year-old female here for high anemia, UTI and shortness of breath. Patient was seen today and is able to answer my questions appropriately. Today she states she is doing okay with no complaints. She denies dizziness, CP, SOB, fevers, chills, dysuria, or abdominal pain. She has a slight sinus headache today and would like a claratin. She does not usually have a mg. Exam Narrative: Exam Narrative: General: Elderly patient resting comfortably in bed in no acute distress HEENT: normocephalic Neck: supple Neuro: alert and oriented x 4 today--much improved. CV:RRR with loud systolic murmur heard in all areas Resp: aheezing in both lung sandoval today, no crackles Abd: Soft, non distended.+ bowel sounds, no pain to palpation. Extremities: No swelling, erythema, or pain to palpation. Objective Data Vital Signs Vital Signs: Vital Signs - 24 hr 01/28/21 20:45 01/28/21 20:58 01/29/21 05:03 Temperature 96.6 F L 96.9 F L Pulse Rate 79 77 Respiratory Rate 20 22 H Blood Pressure 100/46 L 104/47 L Pulse Oximetry 99 99 97 01/29/21 08:48 01/29/21 09:45 01/29/21 10:21 Temperature Pulse Rate Respiratory Rate Blood Pressure Pulse Oximetry 94 99 93 01/29/21 11:00 01/29/21 14:07 Temperature 97.1 F L Pulse Rate 78 Respiratory Rate 20 Blood Pressure 127/47 L Pulse Oximetry 94 96 Intake/Output Intake/Output: Intake & Output 01/26/21
[2021-01-29] MEDS: ALBUTEROL SULFATE NEB 2.5 MG/0.5 ML INH 5 MG INHALATION (16:57)
[2021-01-29] MEDS: ZOLPIDEM TARTRATE (*CRX) 5 MG TABLET PO (20:55)
[2021-01-29] MEDS: PARoxetine 20 MG TABLET PO (20:55)
[2021-01-29] MEDS: QUEtiapine FUMARATE 12.5 MG TABLET PO (20:55)
[2021-01-30] VITALS (12 sets, daily range): BP systolic 100–115; BP diastolic 42–65; PULSE 75–95; RESP 16–22; TEMP 35.9–36.7; O2SAT 88–97
[2021-01-30 05:33] LABS: Mean Corpuscular HGB Conc 30.5 g/dl (32-36); Mean Corpuscular Hemoglobin 34.5 pg (26-34); Mean Corpuscular Volume 113.1 fl (80-100); Mean Platelet Volume 12.7 fl (7.4-10.4); Platelet Count Result 343 k/mm3 (150-375); Red Blood Count 1.45 M/mm3 (4.2-5.4); Red Cell Distribution Width 21.6 % (11.5-14.5); White Blood Count 5.3 K/mm3 (4.5-10.0)
[2021-01-30 05:59] LABS: Blood Urea Nitrogen 14 mg/dL (7-17); Calcium 8.1 mg/dL (8.4-10.2); Carbon Dioxide > 40 mmol/L (22-30); Chloride 98 mmol/L (98-107); Estimated CRCL calculation 47 ml/min; Estimated Glomerular Filt Rate 60; Glucose 99 mg/dL (65-105); Potassium 3.6 mmol/L (3.4-5.0); Sodium 140 mmol/L (137-145)
[2021-01-30 06:27] LABS: Hematocrit 16.4 % (37.0-47.0)
[2021-01-30] MEDS: FUROSEMIDE 20 MG TABLET PO ×2 (08:08→16:57)
[2021-01-30] MEDS: PANTOPRAZOLE SOD SESQUIHYDRATE 20 MG TAB PO (08:08)
[2021-01-30] MEDS: LORATADINE 10 MG TABLET PO (08:08)
[2021-01-30] MEDS: SENNOSIDES 8.6 MG TABLET PO (08:08)
[2021-01-30] MEDS: CYANOCOBALAMIN 500 MCG TABLET PO (08:09)
[2021-01-30] MEDS: FOLIC ACID 1 MG TABLET PO (08:09)
[2021-01-30] MEDS: FERROUS SULFATE 324 MG TABLET PO (08:09)
[2021-01-30] MEDS: ALBUTEROL SULFATE NEB 2.5 MG/0.5 ML INH 5 MG INHALATION ×2 (10:09→19:12)
--- NOTE | 2021-01-30 13:12 | PM.IMPN ---
Progress Note: A&P Assessment and Plan (1) Acute and chronic respiratory failure with hypoxia: Code(s): J96.21 - Acute and chronic respiratory failure with hypoxia Status: Acute Assessment and Plan: Pt has been using 3L of o2 and has been above 92% -she is on 2 L at home -She continues to have SOB and no CP -Will order CTA since she has a hx of cancer to assess for worsening cancer, PE, or PNA -No fevers, WBC normal -obtain abg (2) UTI (urinary tract infection): Code(s): N39.0 - Urinary tract infection, site not specified Status: Acute Assessment and Plan: Urine culture growing E coli -vancomycin and Levaquin stopped and ceftriaxone started 01/29/21 -Pt looks worse today so I am adding a lactic and blood cultures -Rivera has been removed and bladder scan showing <350 each scan (3) Urinary retention: Code(s): R33.9 - Retention of urine, unspecified Status: Acute Assessment and Plan: Voiding trial went well -PRN bladder scan (4) Symptomatic anemia: Code(s): D64.9 - Anemia, unspecified Status: Acute Assessment and Plan: Low but chronic anemia, likely due to multiple factors including metastatic lung disease and MDS -due to mu-ism believes, she is unable she received blood transfusions -patient is fully aware of the risk of this (5) Altered mental status: Qualifiers: Altered mental status type: unspecified Qualified Code(s): R41.82 - Altered mental status, unspecified Code(s): R41.82 - Altered mental status, unspecified Status: Acute Assessment and Plan: Worse today after being resolves yesterday -Pt received ambien 01/29 and 01/28. Will stop that -CT of the brain on admission does not show any acute abnormalities -No neurological deficits on exam -check ABG -monitor (6) Abnormal urinalysis: Code(s): R82.90 - Unspecified abnormal findings in urine Status: Acute Assessment and Plan: As above (7) Metastatic lung cancer (metastasis from lung to other site): Qualifiers: Laterality: unspecified laterality Qualified Code(s): C34.90 - Malignant neoplasm of unspecified part of unspecified bronchus or lung Code(s): C34.90 - Malignant neoplasm of unspecified part of unspecified bronchus or lung Status: Chronic Assessment and Plan: Chronic -spoke with daughter who states that they recently had an appointment with the radiation oncologist who says that the cancer is stable and is not growing (8) MDS (myelodysplastic syndrome): Code(s): D46.9 - Myelodysplastic syndrome, unspecified Status: Acute Assessment and Plan: Chronic (9) Chronic respiratory failure with hypoxia: Code(s): J96.11 - Chronic respiratory failure with hypoxia Status: Chronic Assessment and Plan: Patient is usually on 2 L at home and doing well -she states she always wheezes and breathing treatment doesn't help. -chest x-ray shows possible pneumonia although she no longer has SOB and has no hypoxia. Check CTA, broaden abx depending on the result. Additional Plan CP likely muscular skeletal but will order troponin, CTA and Echo since pt has significant murmur and hx of cancer. Subjective Date/time seen: 01/30/21 13:12 Interval history: Pt is a 80-year-old female here for high anemia, UTI and shortness of breath. Patient was seen today and feels much worse than yesterday. She states she feels short of breath, dizzy, nauseated, and has chest pain. The chest pain is 100% reproducible and hurts when I palpate the muscles and when she breaths in. She says that she has intermittent dizziness. She seemed more confused today because she did not remember that she had lung cancer in the past but she did remember getting radiation. Her headache has resolved. She only has pain in the abdomen on palpation to the RUQ. Unsure if
[2021-01-30] MEDS: ONDANSETRON INJ 4 MG/2 ML VIAL IV PUSH (13:16)
[2021-01-30 13:39] LABS: Alveolar/Arterial O2 Gradient 112.7 mmHg; Base Excess ABG 13.6 mEq/l (+/-2.0); Carboxyhemoglobin 0.1 % THb (0-2.0); Fractional Inspired Oxygen 32 %; HCO3 ABG 38.9 mEq/l (22.0-26.0); Methemoglobin ABG 0.9 %THb (0-1.5); Oxygen Content ABG 5.9 %vol (16.0-22.0); Oxyhemoglobin 76.6 % THb (90.0-100.0); PCO2 ABG 58.9 mmHg (35.0-45.0); PO2 FiO2 Ratio Arterial Blood 1.45 %; Reduced Hemoglobin 22.4 %THb (0-5.0); pH ABG 7.438 (7.350-7.450)
[2021-01-30 13:41] LABS: Oxygen Saturation ABG 82.6 % (95.0-100.0); PO2 ABG 46.5 mmHg (80.0-100.0)
[2021-01-30 13:42] LABS: Total Hemoglobin 5.4 g/dL (12.0-18.0)
[2021-01-30 13:43] LABS: Device NASAL CANNULA; Modified Allen's Test Pass; Site Drawn LEFT RADIAL
[2021-01-30 13:46] LABS: Lactic Acid Reflex 1.2 mmol/L (0.7-2.1)
[2021-01-30 13:50] LABS: CRP 1.1 mg/dL (<1.0)
[2021-01-30 14:11] LABS: Troponin I < 0.012 ng/mL (0.000-0.034)
[2021-01-30 16:51] LABS: Vancomycin Trough 7.2 ug/mL (10.0-20.0)
[2021-01-30] MEDS: QUEtiapine FUMARATE 12.5 MG TABLET PO (20:13)
[2021-01-30] MEDS: PARoxetine 20 MG TABLET PO (20:13)
[2021-01-31] VITALS (13 sets, daily range): BP systolic 107–131; BP diastolic 47–54; PULSE 74–106; RESP 16–22; TEMP 36–36.2; O2SAT 91–97
[2021-01-31 05:20] LABS: Mean Corpuscular Hemoglobin 34.3 pg (26-34); Mean Corpuscular Volume 110.7 fl (80-100); Mean Platelet Volume 12.5 fl (7.4-10.4); Platelet Count Result 332 k/mm3 (150-375); Red Cell Distribution Width 22.2 % (11.5-14.5); White Blood Count 5.8 K/mm3 (4.5-10.0)
[2021-01-31 05:54] LABS: Alanine Aminotransferase 8 U/L (4-35); Albumin Level 3.3 g/dL (3.5-5.1); Alkaline Phosphatase 53 U/L (38-126); Aspartate Amino Transferase 24 U/L (14-36); Bilirubin,Total 0.1 mg/dL (0.2-1.3); Blood Urea Nitrogen 17 mg/dL (7-17); CRP 1.1 mg/dL (<1.0); Calcium 8.1 mg/dL (8.4-10.2); Carbon Dioxide > 40 mmol/L (22-30); Chloride 97 mmol/L (98-107); Estimated CRCL calculation 47 ml/min; Estimated Glomerular Filt Rate 60; Glucose 92 mg/dL (65-105); Magnesium 1.3 mg/dL (1.6-2.3); Phosphorus 4.1 mg/dL (2.5-4.5); Potassium 3.6 mmol/L (3.4-5.0); Sodium 140 mmol/L (137-145)
[2021-01-31 06:14] LABS: Hemoglobin 4.8 g/dL (12.0-15.0)
[2021-01-31 06:15] LABS: Hematocrit 15.5 % (37.0-47.0)
[2021-01-31] MEDS: FUROSEMIDE 20 MG TABLET PO ×2 (08:08→15:59)
[2021-01-31] MEDS: FERROUS SULFATE 324 MG TABLET PO (08:08)
[2021-01-31] MEDS: PANTOPRAZOLE SOD SESQUIHYDRATE 20 MG TAB PO (08:08)
[2021-01-31] MEDS: LORATADINE 10 MG TABLET PO (08:08)
[2021-01-31] MEDS: SENNOSIDES 8.6 MG TABLET PO (08:08)
[2021-01-31] MEDS: CYANOCOBALAMIN 500 MCG TABLET PO (08:08)
[2021-01-31] MEDS: FOLIC ACID 1 MG TABLET PO (08:09)
[2021-01-31] MEDS: ALBUTEROL SULFATE NEB 2.5 MG/0.5 ML INH 5 MG INHALATION ×3 (09:11→19:57)
[2021-01-31] MEDS: MAGNESIUM SULFATE 3GM/D5W100ML 3 GM/100 ML BAG IVPB (09:53)
--- NOTE | 2021-01-31 10:43 | PCOTNOTE ---
Attempted to see patient, patient eating breakfast earlier. Re-attempted to see patient at 10:35am, patient agreeable to wash her face but declined all other interventions, stating I just want to lie here and sleep. My stomach hurts. Patient encouraged to continue to participate in OT exercises or ADLs, but still continued to refuse. Will attempt again later if time.
[2021-01-31] MEDS: ACETAMINOPHEN 325 MG TABLET 650 MG PO (11:10)
[2021-01-31] MEDS: ONDANSETRON INJ 4 MG/2 ML VIAL IV PUSH (11:11)
--- NOTE | 2021-01-31 13:01 | PM.IMPN ---
Progress Note: A&P Assessment and Plan (1) Acute and chronic respiratory failure with hypoxia: Code(s): J96.21 - Acute and chronic respiratory failure with hypoxia Status: Acute Assessment and Plan: Pt has been using 3L of o2 and has been above 92% -she is on 2 L at home -She continues to have SOB, CTA neg for PE -Suspect possible PNA, add azithromycin to ceftriaxone. -No fevers, WBC normal -abg appears mix venous (2) PNA (pneumonia): Code(s): J18.9 - Pneumonia, unspecified organism Status: Acute Assessment and Plan: Continue ceftriaxone and azithromycin -as above (3) UTI (urinary tract infection): Code(s): N39.0 - Urinary tract infection, site not specified Status: Acute Assessment and Plan: Urine culture growing E coli -vancomycin and Levaquin stopped and ceftriaxone started 01/29/21 -blood cultures pending -Rivera has been removed and bladder scan showing <350 each scan (4) Urinary retention: Code(s): R33.9 - Retention of urine, unspecified Status: Acute Assessment and Plan: Voiding trial went well -PRN bladder scan (5) Symptomatic anemia: Code(s): D64.9 - Anemia, unspecified Status: Acute Assessment and Plan: Low but chronic anemia, likely due to multiple factors including metastatic lung disease and MDS -due to jewish believes, she is unable she received blood transfusions -patient is fully aware of the risk of this -Will stop daily blood draws to conserve blood since her labs have been stable (6) Altered mental status: Qualifiers: Altered mental status type: unspecified Qualified Code(s): R41.82 - Altered mental status, unspecified Code(s): R41.82 - Altered mental status, unspecified Status: Acute Assessment and Plan: Waxes and wanes -Pt received ambien 01/29 and 01/28. This has been held for the time being -CT of the brain on admission does not show any acute abnormalities -No neurological deficits on exam -monitor (7) Abnormal urinalysis: Code(s): R82.90 - Unspecified abnormal findings in urine Status: Acute Assessment and Plan: As above (8) Metastatic lung cancer (metastasis from lung to other site): Qualifiers: Laterality: unspecified laterality Qualified Code(s): C34.90 - Malignant neoplasm of unspecified part of unspecified bronchus or lung Code(s): C34.90 - Malignant neoplasm of unspecified part of unspecified bronchus or lung Status: Chronic Assessment and Plan: Chronic -spoke with daughter who states that they recently had an appointment with the radiation oncologist who says that the cancer is stable and is not growing (9) MDS (myelodysplastic syndrome): Code(s): D46.9 - Myelodysplastic syndrome, unspecified Status: Acute Assessment and Plan: Chronic (10) Chronic respiratory failure with hypoxia: Code(s): J96.11 - Chronic respiratory failure with hypoxia Status: Chronic Assessment and Plan: Patient is usually on 2 L at home and doing well -she states she always wheezes and breathing treatment doesn't help. Additional Plan Spoke with daughter who understands the severity of her mothers case but says she has been like this for years and doesn't want to undergo hospice at this time. Subjective Date/time seen: 01/31/21 13:01 Interval history: Pt is a 80-year-old female here for high anemia, UTI and shortness of breath. Patient was seen today and states she feels lousy. She has SOB, gets chills, and is uncomfortable. Nurse states she has intermittent confusion, short of breath and dizziness. No further CP today. Exam Narrative: Exam Narrative: General: Elderly patient resting comfortably in bed in no acute distress HEENT: normocephalic Neck: supple Neuro: alert and oriented to herself, location, and birthday b
[2021-01-31] MEDS: PARoxetine 20 MG TABLET PO (20:50)
[2021-01-31] MEDS: TOLNAFTATE 1% POWDER 45 GM BTL 1 APPLIC TOPICAL (20:50)
[2021-01-31] MEDS: QUEtiapine FUMARATE 12.5 MG TABLET PO (20:59)
[2021-02-01] VITALS (11 sets, daily range): BP systolic 100–114; BP diastolic 42–56; PULSE 76–92; RESP 16–22; TEMP 36.2–36.7; O2SAT 92–95
--- NOTE | 2021-02-01 | ECHO_ITS ---
Patient Info Name: Lindsay Brown Age: 80 years : 1940 Gender: Female Ht: 64 in Wt: 192 lbs BSA: 2.02 m2 HR: 85 bpm BP: 107 / 51 mmHg Heart Rhythm: Sinus Rhythm Technical Quality: Good Exam Date: 02/01/2021 8:55 AM Exam Location: [facility] Pulmonary Exam Room: 253 Patient Status: Inpatient Admit Date: 01/28/2021 Staff Ordering Physician: Martha Levine PA-C Photographic Aide: Alison Baum RDCS Attending Provider: Martha Levine PA-C Referring Physician: Abner GALVAN; Exam Type: CA echo doppler color flow Study Info Indications - systolic murmur Complete two-dimensional, color flow and Doppler transthoracic echocardiogram is performed. Summary 1. Complete two-dimensional, color flow and Doppler transthoracic echocardiogram is performed. 2. Left ventricular systolic function is normal, estimated at 55-60%. 3. The left ventricular diastolic function is grade I diastolic dysfunction. 4. There is moderate aortic valve stenosis with a peak velocity of 389 cm/s, mean gradient of 19 mmHg, and aortic valve area of 1.2 cm2. Left Ventricle Left ventricular chamber dimension is normal. Left ventricular systolic function is normal, estimated at 55-60%. The left ventricular diastolic function is grade I diastolic dysfunction. Right Ventricle Right ventricular chamber dimension is normal. Left Atria Left atrial chamber dimension is normal. Right Atria Right atrial chamber dimension is normal. Aortic Valve The aortic valve is trileaflet. There is moderate aortic valve sclerosis. There is moderate aortic valve stenosis with a peak velocity of 389 cm/s, mean gradient of 19 mmHg, and aortic valve area of 1.2 cm2. There is no aortic valve regurgitation. Pulmonic Valve The pulmonic valve is normal. Mitral Valve The mitral valve has normal leaflets. There is trace mitral valve regurgitation. The mitral valve annulus is mildly calcified. Tricuspid Valve The tricuspid valve leaflets are normal. Pericardium/Pleural The pericardium appears normal. Aorta The aortic root size at the sinus of Valsalva is normal. Left Ventricular Outflow Tract Name Value Normal LVOT 2D LVOT Diameter 2.0 cm LVOT Doppler LVOT Peak Gradient 9 mmHg LVOT Mean Gradient 5 mmHg LVOT VTI 32 cm LVOT VTI/AV VTI Ratio 0.4 LVOT Stroke Volume 97 ml LVOT CO 19.6 l/min LVOT CI 9.7 l/min/m2 Pulmonic Valve Name Value Normal PV Doppler PV Peak Gradient 5 mmHg Mitral Valve Name Value Normal
[2021-02-01] MEDS: ALBUTEROL SULFATE NEB 2.5 MG/0.5 ML INH 5 MG INHALATION ×4 (02:34→20:36)
[2021-02-01 06:00] LABS: Estimated CRCL calculation 52 ml/min; Estimated Glomerular Filt Rate > 60
--- NOTE | 2021-02-01 09:37 | PM.IMPN ---
Progress Note: A&P Assessment and Plan (1) Acute and chronic respiratory failure with hypoxia: Code(s): J96.21 - Acute and chronic respiratory failure with hypoxia Status: Acute Assessment and Plan: Pt has been using 3L of o2 and has been above 92% -she is on 2 L at home -She continues to have SOB, CTA neg for PE -Suspect possible PNA, onazithromycin to ceftriaxone. -No fevers, WBC normal, CRP normal -abg appears mix venous -SOB likely worse due to severe anemia, chronic lung disease, and now possible PNA -Spoke with the daughter about the severity of the disease and her moms condition and she wants to continue treatment as such. She does not want hospice. -Echo later today, could have valvular disease (2) PNA (pneumonia): Code(s): J18.9 - Pneumonia, unspecified organism Status: Acute Assessment and Plan: Continue ceftriaxone and azithromycin -as above (3) UTI (urinary tract infection): Code(s): N39.0 - Urinary tract infection, site not specified Status: Acute Assessment and Plan: Urine culture growing E coli -vancomycin and Levaquin stopped and ceftriaxone started 01/29/21 -blood cultures pending -Mg was removed but pt ended up with 800cc in her bladder and mg was replaced. (4) Urinary retention: Code(s): R33.9 - Retention of urine, unspecified Status: Acute Assessment and Plan: As above -Continue mg -f/u with urology outpt (5) Symptomatic anemia: Code(s): D64.9 - Anemia, unspecified Status: Acute Assessment and Plan: Low but chronic anemia, likely due to multiple factors including metastatic lung disease and MDS -due to orthodoxy believes, she is unable she received blood transfusions -patient is fully aware of the risk of this -spoke with Dr. Collado, he recommends continuing b12 and folate. She also has gotten procrit injections. -Will stop daily blood draws to conserve blood since her labs have been stable, consider drawing them PRN depending on patient's condition. (6) Altered mental status: Qualifiers: Altered mental status type: unspecified Qualified Code(s): R41.82 - Altered mental status, unspecified Code(s): R41.82 - Altered mental status, unspecified Status: Acute Assessment and Plan: Waxes and wanes -Pt received ambien 01/29 and 01/28. This has been held for the time being -CT of the brain on admission does not show any acute abnormalities -No neurological deficits on exam -monitor (7) Abnormal urinalysis: Code(s): R82.90 - Unspecified abnormal findings in urine Status: Acute Assessment and Plan: As above (8) Metastatic lung cancer (metastasis from lung to other site): Qualifiers: Laterality: unspecified laterality Qualified Code(s): C34.90 - Malignant neoplasm of unspecified part of unspecified bronchus or lung Code(s): C34.90 - Malignant neoplasm of unspecified part of unspecified bronchus or lung Status: Chronic Assessment and Plan: Chronic -spoke with daughter who states that they recently had an appointment with the radiation oncologist who says that the cancer is stable and is not growing (9) MDS (myelodysplastic syndrome): Code(s): D46.9 - Myelodysplastic syndrome, unspecified Status: Acute Assessment and Plan: Chronic (10) Chronic respiratory failure with hypoxia: Code(s): J96.11 - Chronic respiratory failure with hypoxia Status: Chronic Assessment and Plan: Patient is usually on 2 L at home and doing well -she states she always wheezes and breathing treatment doesn't help. -Will add scheduled ipratroprium Additional Plan Spoke with daughter who understands the severity of her mothers case but says she has been like this for years and doesn't want to undergo hospice at this time. Subjective Date/time seen:
[2021-02-01] MEDS: FOLIC ACID 1 MG TABLET PO (09:45)
[2021-02-01] MEDS: CYANOCOBALAMIN 500 MCG TABLET PO (09:45)
[2021-02-01] MEDS: FUROSEMIDE 20 MG TABLET PO ×2 (09:45→17:31)
[2021-02-01] MEDS: PANTOPRAZOLE SOD SESQUIHYDRATE 20 MG TAB PO (09:45)
[2021-02-01] MEDS: SENNOSIDES 8.6 MG TABLET PO (09:45)
[2021-02-01] MEDS: MAGNESIUM OXIDE 400 MG TABLET PO (09:45)
[2021-02-01] MEDS: FERROUS SULFATE 324 MG TABLET PO (09:45)
[2021-02-01] MEDS: LORATADINE 10 MG TABLET PO (09:45)
[2021-02-01] MEDS: TOLNAFTATE 1% POWDER 45 GM BTL 1 APPLIC TOPICAL ×2 (09:46→20:45)
[2021-02-01] MEDS: IPRATROPIUM BR 0.02% INH SOLN 0.5 MG/2.5 ML VIAL INHALATION ×2 (13:25→20:36)
--- NOTE | 2021-02-01 14:17 | PCOTNOTE ---
Attempted to see patient 2x, patient feeling nauseated, having chest pain. Patient educated over importance of participating in therapy to manage symptoms and maintain strength. Patient verbalized, I feel like a rat - I just have no energy. I'm tuckered out...I think if I just rest, I'll do better tomorrow. Patient refused all OT interventions still. Will continue plan of care tomorrow, 02/02/21.
--- NOTE | 2021-02-01 17:47 | WPDONCPN ---
Progress Note: A/P - Additional Plan Myelodysplastic syndrome with 5q deletion. Patient has poorly respond to Procrit injection in the past and plan was to start her on Revlimid. We will not give her Revlimid due to significant decline in hemoglobin and her poor performance status that will make tolerance unlikely. I even discussed hospice care with the hospital this seemed patient looks like she has decline. Patient will receive Procrit in the hospital in the meantime. Agree with continuation of folic acid B12 and iron. Patient is a Jehovah Witness and would not take blood transfusion at any case. History of lung cancer. Status post radiation therapy treatment completed in August of 2020. - Time Spent With Patient Total time spent is greater than 50% in coordination of care (as documented) at patient's floor/unit and/or counseling patient: 15 - 25 minutes Subjective Interval history: Myelodysplastic syndrome with 5q deletion Lung cancer Review of Systems - Review of Systems Patient is feeling much more tired and fatigued. She denies any bleeding and bruising. No fevers and chills. No other new changes. - Neurologic Reports confusion Exam Vital signs: Temp Pulse Resp BP Pulse Ox 36.7 C 81 20 114/55 L 92 02/01/21 14:00 02/01/21 14:00 02/01/21 14:00 02/01/21 14:00 02/01/21 14:00 Narrative: Lungs are clear to auscultation bilaterally Cardiovascular regular rate rhythm no murmurs Abdomen soft nontender nondistended bowel sounds are positive Extremities no edema PN: Objective Data - Labs CBC & Chem 7: 01/31/21 04:38 02/01/21 05:24 Labs: Laboratory Results - last 24 hr 02/01/21 05:24 Creatinine 0.80 Estim Creat Clear Calc 52 Estimated GFR > 60
[2021-02-01] MEDS: QUEtiapine FUMARATE 12.5 MG TABLET PO (20:14)
[2021-02-01] MEDS: PARoxetine 20 MG TABLET PO (20:14)
[2021-02-01] MEDS: ACETAMINOPHEN 325 MG TABLET 650 MG PO (20:17)
[2021-02-01] MEDS: SENNA/DOCUSATE SODIUM TABLET 1 TAB PO (20:45)
[2021-02-02] VITALS (17 sets, daily range): BP systolic 104–137; BP diastolic 45–60; PULSE 70–92; RESP 16–22; TEMP 35.5–36.5; O2SAT 92–100
[2021-02-02] MEDS: IPRATROPIUM BR 0.02% INH SOLN 0.5 MG/2.5 ML VIAL INHALATION ×4 (02:19→21:11)
[2021-02-02] MEDS: ALBUTEROL SULFATE NEB 2.5 MG/0.5 ML INH 5 MG INHALATION ×4 (02:19→21:11)
[2021-02-02] MEDS: FERROUS SULFATE 324 MG TABLET PO (08:41)
[2021-02-02] MEDS: CYANOCOBALAMIN 500 MCG TABLET PO (08:41)
[2021-02-02] MEDS: PANTOPRAZOLE SOD SESQUIHYDRATE 20 MG TAB PO (08:42)
[2021-02-02] MEDS: LORATADINE 10 MG TABLET PO (08:42)
[2021-02-02] MEDS: ACETAMINOPHEN 325 MG TABLET 650 MG PO ×2 (08:42→20:43)
[2021-02-02] MEDS: FOLIC ACID 1 MG TABLET PO (08:42)
[2021-02-02] MEDS: SENNOSIDES 8.6 MG TABLET PO (08:42)
[2021-02-02] MEDS: FUROSEMIDE 20 MG TABLET PO ×2 (08:42→16:54)
[2021-02-02] MEDS: MAGNESIUM OXIDE 400 MG TABLET PO (08:42)
[2021-02-02] MEDS: TOLNAFTATE 1% POWDER 45 GM BTL 1 APPLIC TOPICAL ×2 (08:43→20:41)
--- NOTE | 2021-02-02 14:55 | PC.NURSE ---
On 02/02/21, the student, [DOTTY GOMEZ], provided care and completed [facility] documentation on this patient. I have reviewed the student's documentation and agree with the findings.
--- NOTE | 2021-02-02 18:12 | PM.IMPN ---
Progress Note: A&P Assessment and Plan (1) Acute and chronic respiratory failure with hypoxia: Code(s): J96.21 - Acute and chronic respiratory failure with hypoxia Status: Acute Assessment and Plan: Patient presents with SOB likely multifactorial - severe anemia, chronic lung disease with know malignancy, valvular disease, possible PNA. CTA shows no PE. Using 3L/min NC; was using 2L/min at home. (2) Symptomatic anemia: Code(s): D64.9 - Anemia, unspecified Status: Acute Assessment and Plan: Suspect related to her known myelodysplastic syndrome. Follows with Dr Collado for same. She is symptomatic with fatigue and shortness of breath from her profound anemia (Hgb 4.8 on 01/31). She is Anab[employer]ism and declines blood transfusion. She understands the risk and corresponding implications of same. Avoid daily blood draws to conserve blood, consider drawing them PRN depending on patient's condition. (3) MDS (myelodysplastic syndrome): Code(s): D46.9 - Myelodysplastic syndrome, unspecified Status: Acute Assessment and Plan: Continue heme/onc recommendations. (4) PNA (pneumonia): Qualifiers: Pneumonia type: due to unspecified organism Laterality: unspecified laterality Lung location: unspecified part of lung Qualified Code(s): J18.9 - Pneumonia, unspecified organism Code(s): J18.9 - Pneumonia, unspecified organism Status: Acute Assessment and Plan: Continue ceftriaxone and azithromycin, bronchodilators. (5) UTI (urinary tract infection): Qualifiers: Urinary tract infection type: acute cystitis Hematuria presence: without hematuria Qualified Code(s): N30.00 - Acute cystitis without hematuria Code(s): N39.0 - Urinary tract infection, site not specified Status: Acute Assessment and Plan: Urine culture growing E coli. Vancomycin and Levaquin stopped and ceftriaxone started 01/29/21. Blood cultures pending with no growth to date. Rivera was removed but then had urinary retention with 800cc in her bladder and Rivera was replaced. (6) Urinary retention: Code(s): R33.9 - Retention of urine, unspecified Status: Acute Assessment and Plan: As above. Continue Rivera. Follow up with urology outpatient. (7) Altered mental status: Qualifiers: Altered mental status type: unspecified Qualified Code(s): R41.82 - Altered mental status, unspecified Code(s): R41.82 - Altered mental status, unspecified Status: Acute Assessment and Plan: Waxes and wanes. Pt received Ambien earlier in the stay. This has been held for the time being in case it is contributing. CT of the brain shows no acute intracranial abnormalities. Continue to monitor. (8) Metastatic lung cancer (metastasis from lung to other site): Qualifiers: Laterality: unspecified laterality Qualified Code(s): C34.90 - Malignant neoplasm of unspecified part of unspecified bronchus or lung Code(s): C34.90 - Malignant neoplasm of unspecified part of unspecified bronchus or lung Status: Chronic Assessment and Plan: Recent visit with radiation oncology describes a medically inoperable lung cancer in the right upper lobe with evidence of lymph node involvement on PET scan. Stable without significant interval change. Completed a course of radiation therapy in Aug 2020. Additional Plan Detailed discussion with patient regarding her current condition and further goals of care. Subjective Date/time seen: 02/02/21 1400 Interval history: Ms. Brown is an 80
[2021-02-02] MEDS: QUEtiapine FUMARATE 12.5 MG TABLET PO (20:39)
[2021-02-02] MEDS: SENNA/DOCUSATE SODIUM TABLET 1 TAB PO (20:39)
[2021-02-02] MEDS: PARoxetine 20 MG TABLET PO (20:39)
[2021-02-03] VITALS (9 sets, daily range): BP systolic 97–107; BP diastolic 48–53; PULSE 66–92; RESP 20–24; TEMP 36.1–36.7; O2SAT 91–96
[2021-02-03] MEDS: IPRATROPIUM BR 0.02% INH SOLN 0.5 MG/2.5 ML VIAL INHALATION ×3 (02:17→13:18)
[2021-02-03] MEDS: ALBUTEROL SULFATE NEB 2.5 MG/0.5 ML INH 5 MG INHALATION ×3 (02:17→13:18)
[2021-02-03 05:54] LABS: Basophils Percent Auto 0.5 % (0.2-1.2); Eosinophils Absolute Auto 0.4 K/mm3 (0-0.3); Eosinophils Percent Auto 5.9 % (0-4.4); Immature Granulocyte Absolute 0.09 K/mm3 (0.00-0.031); Immature Granulocyte Percent A 1.4 % (0-0.5); Lymphocytes Absolute Auto 1.11 K/mm3 (0.9-3.2); Lymphocytes Percent Auto 17.1 % (18.3-44.2); Mean Corpuscular HGB Conc 31.3 g/dl (32-36); Mean Corpuscular Hemoglobin 34.1 pg (26-34); Mean Corpuscular Volume 108.9 fl (80-100); Mean Platelet Volume 12.9 fl (7.4-10.4); Monocytes Absolute Auto 0.3 K/mm3 (0.1-0.6); Monocytes Percent Auto 5.1 % (2.6-8.5); Neutrophils Absolute Auto 4.5 K/mm3 (1.3-6.7); Nucleated Red Blood Cells Perc 0.3 % (0.0-0.2); Platelet Count Result 389 k/mm3 (150-375); Red Blood Count 1.35 M/mm3 (4.2-5.4); Red Cell Distribution Width 23.5 % (11.5-14.5); White Blood Count 6.5 K/mm3 (4.5-10.0)
[2021-02-03 06:05] LABS: Blood Urea Nitrogen 18 mg/dL (7-17); Calcium 8.2 mg/dL (8.4-10.2); Carbon Dioxide > 40 mmol/L (22-30); Chloride 96 mmol/L (98-107); Estimated CRCL calculation 52 ml/min; Estimated Glomerular Filt Rate > 60; Glucose 92 mg/dL (65-105); Magnesium 1.8 mg/dL (1.6-2.3); Potassium 3.8 mmol/L (3.4-5.0); Sodium 137 mmol/L (137-145)
[2021-02-03 06:29] LABS: Hematocrit 14.7 % (37.0-47.0); Hemoglobin 4.6 g/dL (12.0-15.0)
[2021-02-03 06:30] LABS: Hypochromasia 2+ (NORMAL); Ovalocytes 1+ (NORMAL); Target Cells 1+ (NORMAL); Tear Drop Cells 1+ (NORMAL)
[2021-02-03] MEDS: FERROUS SULFATE 324 MG TABLET PO (08:57)
[2021-02-03] MEDS: SENNOSIDES 8.6 MG TABLET PO (08:58)
[2021-02-03] MEDS: PANTOPRAZOLE SOD SESQUIHYDRATE 20 MG TAB PO (08:58)
[2021-02-03] MEDS: MAGNESIUM OXIDE 400 MG TABLET PO (08:58)
[2021-02-03] MEDS: CYANOCOBALAMIN 500 MCG TABLET PO (08:58)
[2021-02-03] MEDS: TOLNAFTATE 1% POWDER 45 GM BTL 1 APPLIC TOPICAL (08:59)
[2021-02-03] MEDS: FOLIC ACID 1 MG TABLET PO (08:59)
[2021-02-03] MEDS: LORATADINE 10 MG TABLET PO (08:59)
--- NOTE | 2021-02-03 11:34 | PM.DS ---
DS: Admitting Diagnosis Admitting Diagnosis Admitting Diagnosis: UTI, anemia DS: Discharge Diagnosis Discharge Diagnosis (1) Acute and chronic respiratory failure with hypoxia: Code(s): J96.21 - Acute and chronic respiratory failure with hypoxia Status: Acute Assessment and Plan: Date of Admission 01/27/21 Date of Discharge 02/03/21 Ms. Brown is a pleasant 80yo F of metastatic lung cancer, myelodysplastic syndrome, COPD, and chronic respiratory failure 2 L of oxygen at home among other comorbidities who presented to the ED for evaluation of low Hgb and generalized weakness. Patient is found to have a Hgb of 4.8 on outpatient lab work day prior to arrival she has been feeling more weak, tired, and short of breath. Patient is noted be a [employer] and declines blood products for transfusion. She has been getting Procrit injections periodically under the care of Dr. Collado. He had plans to start Revlimid but records indicate she has not started on this yet due to her low Hgb. She was found to have a urinary tract infection and was treated with IV antibiotics outlined below. It was felt she may also have pneumonia thus azithromycin was added as well as nebulized bronchodilator therapy. Discharge with oral cefdinir to complete the course. She remains fatigued and short of breath which is felt likely to be related to her severe anemia, chronic lung disease with her known malignancy, and possible pneumonia. Echocardiogram demonstrates moderate aortic stenosis which could also contribute. Overall her prognosis is poor. Previous provider spoke with patient and family member offering hospice informational meeting, family declines at this time. She is intermittently confused which her memory care staff confirms is her baseline. Most recent Hgb 4.6 day of discharge. She is felt to have reached her maximum benefit of being hospitalized and is discharged back to her memory care assisted living 02/03/21. She will follow up with Dr Collado for biweekly Procrit injections. Patient presents with SOB likely multifactorial - severe anemia, chronic lung disease with know malignancy, valvular disease, possible PNA. CTA shows no PE. Using 3L/min NC; was using 2L/min at home. (2) Symptomatic anemia: Code(s): D64.9 - Anemia, unspecified Status: Acute Assessment and Plan: Suspect related to her known myelodysplastic syndrome. Follows with Dr Collado for same. She is symptomatic with fatigue and shortness of breath from her profound anemia (Hgb 4.6). She is Judaism and declines blood transfusion. She understands the risk and corresponding implications of same. (3) Metastatic lung cancer (metastasis from lung to other site): Qualifiers: Laterality: unspecified laterality Qualified Code(s): C34.90 - Malignant neoplasm of unspecified part of unspecified bronchus or lung Code(s): C34.90 - Malignant neoplasm of unspecified part of unspecified bronchus or lung Status: Chronic Assessment and Plan: Recent visit with radiation oncology describes a medically inoperable lung cancer in the right upper lobe with evidence of lymph node involvement on PET scan. Stable without significant interval change. Completed a course of radiation therapy in Aug 2020. (4) MDS (myelodysplastic syndrome): Code(s): D46.9 - Myelodysplastic syndrome, unspecified Status: Acute Assessment and Plan: Continue heme/onc recommendations. (5) PNA (pneumonia): Qualifiers: Pneumonia type: due to unspecified organism Laterality: unspecified laterality Lung location: unspecified part of lung Qualified Code(s): J18.9 - Pneumonia, unspecified organism Code(s): J18.9 - Pneu
--- NOTE | 2021-02-03 14:44 | PC.NURSE ---
On 02/03/21, the student, [Astrid Thornton ], provided care and completed [facility] documentation on this patient. I have reviewed the student's documentation and agree with the findings.
--- NOTE | 2021-02-03 15:21 | PCOTNOTE ---
Attempted therapy session with patient, but patient refused, stating she was just too tired and that she would be discharging this afternoon.
== END 2021-02-03 18:20 | DRG 180 ==
LOC: ANHED 17:40 → ANH2MED 18:53
PROVIDERS: Physician Assistant; Admitting Provider Family Medicine; Emergency Provider Emergency Medicine; Visit Provider Internal Medicine
DX: C34.11 Malignant neoplasm of upper lobe, right bronchus or lung (principal); J18.9 Pneumonia, unspecified organism; J96.21 Acute and chronic respiratory failure with hypoxia; N39.0 Urinary tract infection, site not specified; C79.31 Secondary malignant neoplasm of brain; J44.0 Chronic obstructive pulmonary disease with (acute) lower respiratory infection; D63.0 Anemia in neoplastic disease; B96.20 Unspecified Escherichia coli [E. coli] as the cause of diseases classified elsewhere; D46.9 Myelodysplastic syndrome, unspecified; D63.8 Anemia in other chronic diseases classified elsewhere; R33.9 Retention of urine, unspecified; R41.82 Altered mental status, unspecified; I35.0 Nonrheumatic aortic (valve) stenosis; F03.90 Unspecified dementia, unspecified severity, without behavioral disturbance, psychotic disturbance, mood disturbance, and anxiety; F32.9 Major depressive disorder, single episode, unspecified; E66.01 Morbid (severe) obesity due to excess calories; Z68.33 Body mass index [BMI] 33.0-33.9, adult; Z90.49 Acquired absence of other specified parts of digestive tract; Z85.6 Personal history of leukemia; Z99.81 Dependence on supplemental oxygen; Z87.891 Personal history of nicotine dependence
CPT/HCPCS: 36415; 36600; 70450; 71045; 71275; 74177; 76705; 80048; 80053; 80076; 80202; 81001; 82375; 82565; 82805; 83050; 83605; 83735; 84100; 84484; 85025; 85027; 85610; 85730; 86140; 86850; 86900; 86901; 87040; 87077; 87086; 87088; 87186; 93306; 94640; 96365; 96366; 96367; 97110; 97116; 97161; 97165; 97530; 99285; A9270; G0378; J0456; J0696; J1956; J2405; J3370; J3475; J7030; J7060; Q5106; Q9967

== ENCOUNTER 2021-02-22 09:20 | Inpatient (IN) | payer MEDICARE, OTHER, SELFPAY ==
[2021-02-21 08:10] VITALS: PULSE 73; RESP 16; O2SAT 95
[2021-02-21 08:24] VITALS: BP 109/52; PULSE 73; RESP 16; TEMP 36.3; O2SAT 95; BMI 32.3
--- NOTE | 2021-02-21 08:25 | ADMGEN ---
This patient, Lindsay Brown, was admitted to Medical Room 348-01. Patient/family oriented to hospital policies and general routines including ID bracelet, bed and alarms, visiting hours, pain management, procedures, bathroom and other care routines, personal items, smoking policy, room service/diet, and visiting hours. Information on how to activate the Rapid Response Team has been discussed. Patient/Family are encouraged to report perceived risks to care and to ask questions if they do not understand what they are told or what they should do.
[2021-02-21] MEDS: IRON SUCROSE COMPLEX 200 MG in SODIUM CHLORIDE 0.9% IV 50 ML 120 MG IVPB (09:40)
--- NOTE | 2021-02-21 09:43 | PM.IMHP ---
H&P: HPI History of Present Illness Date/Time: 02/21/21 09:43 Chief Complaint: Chief complaint 1. Generalized weakness 2. Feeling warm Patient is 80 years old female Latter day who was transferred from [facility] this morning. Patient has a history of metastatic lung cancer, myelodysplastic syndrome, COPD and chronic home oxygen use, low hemoglobin was transferred from [facility]. Patient went to hospital with a complaint of having generalized weakness and feeling of warm. Patient denies any shortness of breath or chest pain at present time. However patient is on home oxygen. Patient denies any nausea vomiting diarrhea. Patient denies any exposure to COVID. Review of Systems Review of Systems: All systems reviewed & are unremarkable except as noted in HPI and below (the history and physical exam) [facility] Past Medical History Medical History Asthma Chronic respiratory failure with hypoxia On 2 L per nasal cannula Closed fracture of right hip requiring operative repair Community acquired pneumonia COPD (chronic obstructive pulmonary disease) Dementia Depression Dyslipidemia History of leukemia MDS MDS (myelodysplastic syndrome) Metastatic lung cancer (metastasis from lung to other site) Pneumonia Profound anemia S/P ORIF (open reduction internal fixation) fracture Right hip UTI (urinary tract infection) Surgical History Surgical History History of cholecystectomy Family History Family History Mother Leukemia Father Asthma Social History Social History Social History: She has 3 children, 2 girls and 1 boy. She listed both of her children as a durable power assistant city attorney for healthcare. She was a homemaker and is now. She is a Jehovah Witness and does not receive any blood products. Patient is a former smoker. Smoking packs per day: 1 Smoking cigarettes per day: 20.0 Years smoked: 60 Smoking pack-years: 60.00 Smoking status: Former smoker Second hand tobacco smoke exposure: No Alcohol intake: never Substance use: never Substance use type: does not use Gender identity (if verbalized by the patient): Female Spiritual care concerns: Yes (Jehovah witness no blood) Agree to blood products: No Meds Home Medications and Allergies Home Medications Medication Instructions Recorded Confirmed Type omeprazole 20 mg PO BID 09/02/19 02/21/21 History aspirin 81 mg PO DAILY #30 tablet 11/30/20 02/21/21 Rx cyanocobalamin (vitamin B-12) 500 mcg PO DAILY #30 tablet 11/30/20 02/21/21 Rx [Vitamin B-12] ferrous sulfate 325 mg PO DAILY #30 tablet 11/30/20 02/21/21 Rx folic acid 1 mg PO DAILY #30 tablet 11/30/20 02/21/21 Rx paroxetine HCl 20 mg PO DAILY #30 tablet 11/30/20 02/21/21 Rx polyethylene glycol 3350 [Miralax] 17 g PO DAILY PRN #30 ea 11/30/20 02/21/21 Rx quetiapine [Seroquel] 12.5 mg PO HS #30 tablet 11/30/20 02/21/21 Rx calcium carbonate 1,000 mg PO TID PRN 12/29/20 02/21/21 History zolpidem 5 mg PO HS PRN 12/29/20 02/21/21 History acetaminophen [Tylenol] 650 mg PO BID PRN 01/27/21 02/21/21 History albuterol 180 mcg INHALATION Q6H PRN 01/27/21 02/21/21 History albuterol sulfate [ProAir HFA] 2 puff INHALATION QID PRN 01/27/21 02/21/21 History docusate sodium 100 mg PO BID 01/27/21 02/21/21 History sennosides [senna] 8.6 mg PO DAILY 01/27/21 02/21/21 History furosemide 20 mg PO DAILY #60 tablet 02/03/21 02/21/21 Rx Allergies Allergy/AdvReac Type Severity Reaction Status Date / Time latex Allergy Unknown Verified 02/21/21 08:26 Penicillins Allergy Unknown Verified 02/21/21 08:26 Vital Signs Vital Signs - 24 hr 02/21/21 08:24 Temperature 36.3 C L Pulse Rate 73 Respiratory Rate 16 Blood Pressure 109/52 L Pulse Oximetry 95 Exam N
[2021-02-21 10:43] LABS: Mean Corpuscular HGB Conc 29.6 g/dl (32-36); Mean Corpuscular Hemoglobin 34.1 pg (26-34); Mean Corpuscular Volume 115.4 fl (80-100); Mean Platelet Volume 12.9 fl (7.4-10.4); Platelet Count Result 299 k/mm3 (150-375); Red Blood Count 1.23 M/mm3 (4.2-5.4); Red Cell Distribution Width 24.3 % (11.5-14.5); White Blood Count 4.3 K/mm3 (4.5-10.0)
[2021-02-21 10:51] LABS: Hematocrit 14.2 % (37.0-47.0); Hemoglobin 4.2 g/dL (12.0-15.0)
[2021-02-21 11:13] LABS: Alanine Aminotransferase 7 U/L (4-35); Albumin Level 3.6 g/dL (3.5-5.1); Alkaline Phosphatase 58 U/L (38-126); Aspartate Amino Transferase 19 U/L (14-36); Bilirubin,Total 0.4 mg/dL (0.2-1.3); Blood Urea Nitrogen 14 mg/dL (7-17); Calcium 8.8 mg/dL (8.4-10.2); Carbon Dioxide > 40 mmol/L (22-30); Chloride 98 mmol/L (98-107); Estimated CRCL calculation 61 ml/min; Estimated Glomerular Filt Rate > 60; Glucose 121 mg/dL (65-105); Potassium 4.7 mmol/L (3.4-5.0); Sodium 139 mmol/L (137-145)
[2021-02-21] MEDS: CYANOCOBALAMIN 500 MCG TABLET PO (12:33)
[2021-02-21] MEDS: FOLIC ACID 1 MG TABLET PO (12:33)
[2021-02-21] MEDS: FUROSEMIDE 20 MG TABLET PO (12:33)
[2021-02-21] MEDS: PANTOPRAZOLE 40 MG TABLET PO ×2 (12:33→20:07)
[2021-02-21] MEDS: DOCUSATE SODIUM 100 MG CAPSULE PO ×2 (12:33→17:18)
[2021-02-21] MEDS: ASPIRIN 81 MG CHEWABLE TABLET PO (12:33)
[2021-02-21] MEDS: SENNOSIDES 8.6 MG TABLET PO (12:33)
[2021-02-21] MEDS: PARoxetine 20 MG TABLET PO (12:33)
[2021-02-21] MEDS: FERROUS SULFATE 324 MG TABLET PO (12:34)
[2021-02-21 14:00] VITALS: BP 118/60; PULSE 76; RESP 16; TEMP 36.7; O2SAT 94
[2021-02-21] MEDS: QUEtiapine FUMARATE 12.5 MG TABLET PO (20:07)
[2021-02-21 20:23] VITALS: BP 115/45; PULSE 80; RESP 14; TEMP 36; O2SAT 95
[2021-02-22] VITALS (8 sets, daily range): BP systolic 128–150; BP diastolic 60–65; PULSE 85–94; RESP 18–22; TEMP 35.8–36.5; O2SAT 89–95
--- NOTE | ~2021-02-22 | XR_ITS ---
EXAMINATION: XR chest 1V portable DATE: 02/23/2021 14:34 INDICATION: Hypoxia. TECHNIQUE: A single frontal view of the chest was obtained. COMPARISON: Chest single view 01/27/2021, chest CT 01/30/2021 FINDINGS: There are patchy airspace opacities in all lung zones bilaterally, right worse than left. N o pleural effusion or pneumothorax. Cardiomegaly is noted. There is a small right pleural effusion. IMPRESSION: 1. Worsened diffuse lung disease, consistent with pulmonary edema versus pneumonia. 2. Stable small right pleural effusion. 3. Cardiomegaly. Reviewed, dictated and finalized at location B. IMPRESSION: 1. Worsened diffuse lung disease, consistent with pulmonary edema versus pneumo stan. 2. Stable small right pleural effusion. 3. Cardiomegaly.
[2021-02-22 05:56] LABS: Immature Platelet Fraction Pct 15.1 % (0.9-11.2); Mean Corpuscular HGB Conc 29.7 g/dl (32-36); Mean Corpuscular Hemoglobin 34.1 pg (26-34); Mean Corpuscular Volume 115.1 fl (80-100); Mean Platelet Volume 13.2 fl (7.4-10.4); Platelet Count Result 325 k/mm3 (150-375); Red Blood Count 1.26 M/mm3 (4.2-5.4); Red Cell Distribution Width 24.6 % (11.5-14.5); White Blood Count 4.9 K/mm3 (4.5-10.0)
[2021-02-22] MEDS: ALBUTEROL SULFATE (*SP) AEROSOL 1 PUFF 2 PUFF INHALATION (06:11)
[2021-02-22 06:15] LABS: Hematocrit 14.5 % (37.0-47.0); Hemoglobin 4.3 g/dL (12.0-15.0)
[2021-02-22] MEDS: FOLIC ACID 1 MG TABLET PO (09:16)
[2021-02-22] MEDS: ASPIRIN 81 MG CHEWABLE TABLET PO (09:16)
[2021-02-22] MEDS: PANTOPRAZOLE 40 MG TABLET PO ×2 (09:16→20:00)
[2021-02-22] MEDS: DOCUSATE SODIUM 100 MG CAPSULE PO ×2 (09:16→17:41)
[2021-02-22] MEDS: FUROSEMIDE 20 MG TABLET PO (09:16)
[2021-02-22] MEDS: FERROUS SULFATE 324 MG TABLET PO (09:16)
[2021-02-22] MEDS: CYANOCOBALAMIN 500 MCG TABLET PO (09:17)
[2021-02-22] MEDS: PARoxetine 20 MG TABLET PO (09:17)
[2021-02-22] MEDS: SENNOSIDES 8.6 MG TABLET PO (09:17)
[2021-02-22] MEDS: CALCIUM CARBONATE (TUMS) 500 MG (200 MG ELEMENTAL) 400 MG BY MOUTH (09:29)
--- NOTE | 2021-02-22 10:08 | PC.NURSE ---
[facility] in [place] called for update on pt, I asked if they knew of last bm that the pt had since she does not know. They stated they believe it was the 18 of February or Monday the 19 February.
[2021-02-22] MEDS: ACETAMINOPHEN 325 MG TABLET 650 MG PO (12:39)
--- NOTE | 2021-02-22 12:55 | PDONCCN ---
[facility] - Date of Consult Date/Time: 02/22/21 12:55 Requesting Physician: Pedro Pablo Jefferson MD Primary Care Provider: [facility] [employer] [facility] - Consult Narrative Reason for consult: Myelodysplastic syndrome Narrative: Lindsay Brown is a 80 year old female with diagnosis of myelodysplastic syndrome with 5q deletion. Patient is a Jehovah Witness. Patient also has a history of non-small cell lung cancer status post radiation therapy treatment. She was on Procrit on every 2 weeks basis and repeat bone marrow biopsy was performed that showed myelodysplasia with 5q deletion. Plan was to start her on Revlimid but her hemoglobin dropped significantly and got admitted to the hospital in January of 2021. She was subsequently discharged to the assisted living. Patient now transfer from the [facility]. She came back into the hospital again today with extreme tiredness and fatigue. She denies any bleeding including melena hematochezia. She has been eating poorly. Denies any nausea vomiting and diarrhea. Review of Systems - Review of Systems All systems reviewed & are unremarkable except as noted in [facility] and [facility] Medical History: Medical History (Last Reviewed 02/21/21 @ 09:49 by Michel Diaz MD) Asthma Chronic respiratory failure with hypoxia On 2 L per nasal cannula Closed fracture of right hip requiring operative repair Community acquired pneumonia COPD (chronic obstructive pulmonary disease) Dementia Depression Dyslipidemia History of leukemia MDS MDS (myelodysplastic syndrome) Metastatic lung cancer (metastasis from lung to other site) Pneumonia Profound anemia S/P ORIF (open reduction internal fixation) fracture Right hip UTI (urinary tract infection) Surgical History: Surgical History (Last Reviewed 01/28/21 @ 02:39 by Vincent Nicholson, ) History of cholecystectomy Family History: Family History (Last Reviewed 02/21/21 @ 11:11 by Regina Song RN) Mother Leukemia Father Asthma - Social History Social History: Social History (Last Reviewed 02/21/21 @ 09:49 by Michel Diaz MD) Gender Identity: Gender identity (if verbalized by the patient): Female Alcohol Use: Alcohol intake: never Substance Use: Substance use: never Substance use type: does not use Others: Spiritual care concerns: Yes Spiritual care concerns comment: Jehovah witness no blood Agree to blood products: No Smoking Status: Smoking status: Former smoker Second hand tobacco smoke exposure: No Smoking Pack-years: Smoking packs per day: 1 Smoking cigarettes per day: 20.0 Years smoked: 60 Smoking pack-years: 60.00 Meds Home Medications Medication Instructions Recorded Confirmed Type omeprazole 20 mg PO BID 09/02/19 02/21/21 History aspirin 81 mg PO DAILY #30 tablet 11/30/20 02/21/21 Rx cyanocobalamin (vitamin B-12) 500 mcg PO DAILY #30 tablet 11/30/20 02/21/21 Rx [Vitamin B-12] ferrous sulfate 325 mg PO DAILY #30 tablet 11/30/20 02/21/21 Rx folic acid 1 mg PO DAILY #30 tablet 11/30/20 02/21/21 Rx paroxetine HCl 20 mg PO DAILY #30 tablet 11/30/20 02/21/21 Rx polyethylene glycol 3350 [Miralax] 17 g PO DAILY PRN #30 ea 11/30/20 02/21/21 Rx quetiapine [Seroquel] 12.5 mg PO HS #30 tablet 11/30/20 02/21/21 Rx calcium carbonate 1,000 mg PO TID PRN 12/29/20 02/21/21 History zolpidem 5 mg PO HS PRN 12/29/20 02/21/21 History acetaminophen [Tylenol] 650 mg PO BID PRN 01/27/21 02/21/21 History albuterol 180 mcg INHALATION Q6H PRN 01/27/21 02/21/21 History albuterol sulfate [ProAir HFA] 2 puff INHALATION QID PRN 01/27/21 02/21/21 History docusate sodium 100 mg PO BID 01/27/21 02/21/21 History sennosides [senna] 8.6 mg PO DAILY 01/27/21 02/21/21 History furosemide 20 mg PO DAILY #60 tablet 02/03/21 02/21/21 Rx Allergies Allergy/AdvReac Type Severity Reaction Status Date / Time latex Allergy Unknown Verified 02/21/21 08:26 Penicillin
--- NOTE | 2021-02-22 13:57 | PC.NURSE ---
Spoke with daughter/POA, Lyn, informed her that Dr. Collado has ordered a one time dose of epoetin. The reason for use of the medication as well as the possible side effects were gone over with her as well as the pt. They are both okay with the injection being given. Daughter stated she had received something like this before.
[2021-02-22] MEDS: EPOETIN ALFA-EPBX 20,000 UNITS/ML VIAL 20000 UNITS SUB-Q (14:01)
--- NOTE | 2021-02-22 15:27 | PM.IMPN ---
Progress Note: A&P Assessment and Plan (1) MDS (myelodysplastic syndrome): Code(s): D46.9 - Myelodysplastic syndrome, unspecified Status: Acute Assessment and Plan: Appreciate consultation from Dr. Collado. Patient with known myelodysplastic syndrome with 5q deletion. Was to start on Revlimid but this was discontinued as patient became significantly anemic and thought was she would not be able to tolerate any more treatment with Revlimid. Patient has been given another injection of Procrit today. Will continue vitamin B12 and iron. She is now DNR. Oncology to discuss possibility of hospice care with family but this has previously been declined by family. Will continue to monitor closely. (2) Symptomatic anemia: Code(s): D64.9 - Anemia, unspecified Status: Acute Assessment and Plan: Result of myelodysplastic syndrome. Patient is a Faith and therefore no transfusions. Hemoglobin is 4.3 today. Will continue treatment as noted above. (3) Weakness: Code(s): R53.1 - Weakness Status: Acute Assessment and Plan: Most likely predominantly from severe anemia but also with urinary tract infection. Will monitor. (4) UTI (urinary tract infection): Qualifiers: Urinary tract infection type: acute cystitis Hematuria presence: without hematuria Qualified Code(s): N30.00 - Acute cystitis without hematuria Code(s): N39.0 - Urinary tract infection, site not specified Status: Acute Assessment and Plan: Urine culture is now growing E coli. Will continue IV levofloxacin while awaiting final results. Adjust treatment as needed. Anticipate should be able to transition to oral antibiotic. (5) Chronic respiratory failure with hypoxia: Code(s): J96.11 - Chronic respiratory failure with hypoxia Status: Chronic Assessment and Plan: No new issue. Continue oxygen as needed. (6) Metastatic lung cancer (metastasis from lung to other site): Qualifiers: Laterality: unspecified laterality Qualified Code(s): C34.90 - Malignant neoplasm of unspecified part of unspecified bronchus or lung Code(s): C34.90 - Malignant neoplasm of unspecified part of unspecified bronchus or lung Status: Chronic Assessment and Plan: Also with history of non-small cell lung cancer status post radiation therapy completed in August 2020. Continue other treatments as noted above. (7) DVT prophylaxis: Code(s): Z29.9 - Encounter for prophylactic measures, unspecified Status: Acute Assessment and Plan: SCDs. Time Spent With Patient Time with patient: 15 - 25 minutes Subjective Date/time seen: 02/22/21 15:27 Interval history: Date of Service: 02/22/2021. 80-year-old woman with known myelodysplastic syndrome transferred from [facility] with symptomatic anemia. Also with known history of metastatic lung cancer. Today, patient states she was taking a nice nap. Has been tired. No headache or dizziness. Does not feel short of breath. No chest pain or pressure. No abdominal pain but does note some right flank pain. No nausea or vomiting. Review of Systems Review of Systems: Narrative: Has been noted to have some confusion per nursing. Constitutional: Constitutional: Reports fatigue and Denies fever(s) Eyes: Eyes: Reports no additional eye complaints ENT: Denies sore throat Cardiovascular: Cardiovascular: Denies chest pain Respiratory: Respiratory: Denies cough and Denies dyspnea Gastrointestinal: Gastrointestinal: Denies abdominal pain, Denies nausea and Denies vomiting Genitourinary: Genitourinary: Denies hematuria and Denies dysuria Musculoskeletal: Comments: Right flank pain Integumentary/Breasts: Skin/Breast: Denies rash Neurologic: Denies dizziness and Denies headache(s) Psychiatric: Psychiatric: Reports confusion Exam Narrative: Exam Narrative: Easily awakened. Const:
[2021-02-22] MEDS: QUEtiapine FUMARATE 12.5 MG TABLET PO (20:00)
[2021-02-23] VITALS (8 sets, daily range): BP systolic 101–140; BP diastolic 51–69; PULSE 80–92; RESP 16–19; TEMP 35.9–36.8; O2SAT 92–95
[2021-02-23 05:55] LABS: Mean Corpuscular HGB Conc 30.7 g/dl (32-36); Mean Corpuscular Hemoglobin 34.7 pg (26-34); Mean Corpuscular Volume 113.2 fl (80-100); Mean Platelet Volume 12.8 fl (7.4-10.4); Platelet Count Result 309 k/mm3 (150-375); Red Blood Count 1.21 M/mm3 (4.2-5.4); White Blood Count 5.1 K/mm3 (4.5-10.0)
[2021-02-23 06:08] LABS: Blood Urea Nitrogen 16 mg/dL (7-17); Calcium 8.8 mg/dL (8.4-10.2); Carbon Dioxide > 40 mmol/L (22-30); Chloride 98 mmol/L (98-107); Estimated CRCL calculation 54 ml/min; Estimated Glomerular Filt Rate > 60; Glucose 96 mg/dL (65-105); Potassium 4.1 mmol/L (3.4-5.0); Sodium 140 mmol/L (137-145)
[2021-02-23 06:14] LABS: Hematocrit 13.7 % (37.0-47.0); Hemoglobin 4.2 g/dL (12.0-15.0)
[2021-02-23] MEDS: CYANOCOBALAMIN 500 MCG TABLET PO (09:09)
[2021-02-23] MEDS: PARoxetine 20 MG TABLET PO (09:09)
[2021-02-23] MEDS: SENNOSIDES 8.6 MG TABLET PO (09:09)
[2021-02-23] MEDS: DOCUSATE SODIUM 100 MG CAPSULE PO ×2 (09:09→17:09)
[2021-02-23] MEDS: FUROSEMIDE 20 MG TABLET PO (09:09)
[2021-02-23] MEDS: PANTOPRAZOLE 40 MG TABLET PO ×2 (09:09→20:25)
[2021-02-23] MEDS: FOLIC ACID 1 MG TABLET PO (09:09)
[2021-02-23] MEDS: FERROUS SULFATE 324 MG TABLET PO (09:09)
[2021-02-23] MEDS: ASPIRIN 81 MG CHEWABLE TABLET PO (10:17)
--- NOTE | 2021-02-23 13:59 | PM.IMPN ---
Progress Note: A&P Assessment and Plan (1) MDS (myelodysplastic syndrome): Code(s): D46.9 - Myelodysplastic syndrome, unspecified Status: Acute Assessment and Plan: Appreciate consultation from Dr. Collado. Patient with known myelodysplastic syndrome with 5q deletion. Was to start on Revlimid but this was discontinued as patient became significantly anemic and thought was she would not be able to tolerate any more treatment with Revlimid. Patient has been receiving Procrit with last dose yesterday. Continue B12 and iron. She is a DNR. Note that Oncology plans to discuss possibility of hospice care with family. Will continue to monitor closely. (2) Symptomatic anemia: Code(s): D64.9 - Anemia, unspecified Status: Acute Assessment and Plan: Result of myelodysplastic syndrome. Patient is a Restorationist and therefore no transfusions. Hemoglobin is 4.2 today. As above. (3) Weakness: Code(s): R53.1 - Weakness Status: Acute Assessment and Plan: Most likely predominantly from severe anemia but also with urinary tract infection. PT/OT. Increase activity. Will monitor. (4) UTI (urinary tract infection): Qualifiers: Hematuria presence: without hematuria Urinary tract infection type: acute cystitis Qualified Code(s): N30.00 - Acute cystitis without hematuria Code(s): N39.0 - Urinary tract infection, site not specified Status: Acute Assessment and Plan: Urine culture is growing E coli. Patient had urine retention last admission requiring chronic Rivera catheter. As such this is a complicated UTI. E coli is resistant to Levaquin so will adjust antibiotics. Routine Rivera care. (5) Chronic respiratory failure with hypoxia: Code(s): J96.11 - Chronic respiratory failure with hypoxia Status: Chronic Assessment and Plan: Patient last month was on 2 L oxygen nasal cannula but at time of discharge was up to 3 L. patient has been on 5 L oxygen here continuously. A few scattered wheezes but otherwise lung exam is unrevealing. Will check chest x-ray. Wean oxygen as tolerated to keep SpO2 greater than 92. CXR reviewed and showing worsening airspace disease. Will give Lasix x1. (6) Metastatic lung cancer (metastasis from lung to other site): Qualifiers: Laterality: unspecified laterality Qualified Code(s): C34.90 - Malignant neoplasm of unspecified part of unspecified bronchus or lung Code(s): C34.90 - Malignant neoplasm of unspecified part of unspecified bronchus or lung Status: Chronic Assessment and Plan: Patient with history of non-small cell lung cancer status post radiation therapy completed in August 2020. CTA of the chest last month showing multiple lung nodules. Continue other treatments as noted above. (7) DVT prophylaxis: Code(s): Z29.9 - Encounter for prophylactic measures, unspecified Status: Acute Assessment and Plan: SCDs. Subjective Date/time seen: 02/23/21 13:59 Interval history: 80yo woman with known myelodysplastic syndrome transferred from [facility] with symptomatic anemia. Also with known history of metastatic lung cancer. Assuming care. Chart reviewed. Patient is alert but confused. No chest pain or shortness of breath. she denies that she has a Rivera catheter at home. She denies wearing oxygen at home. She has no significant complaints but history is suspect given her confusion. Review of Systems Review of Systems: ROS unobtainable: Yes unobtainable due to mental status Exam Narrative: Exam Narrative: AF 98.2 139/53 80 18 95% 5L Gen - NARD sitting up in bed Chest - few rhonchi in the bases. End expiratory wheezes anteriorly. Normal respiratory rate CV - RRR S1/S2. Abd - Soft, NT/ND, Positive BS Ext - No pedal edema. SCDs in place Neuro - alert and cooperative. Oriented to name and loca
--- NOTE | 2021-02-23 15:18 | PCOTNOTE ---
Attempted OT evaluation, but unable to complete as patient refused. Patient stated, I would rather not do it right now. I'm not feeling well. My stomach is queasy today. I'm not feeling up to it . Spoke to RN who reported that patient is weak and has a low hemoglobin. Will attempt again tomorrow.
[2021-02-23] MEDS: ACETAMINOPHEN 325 MG TABLET 650 MG PO (17:09)
[2021-02-23] MEDS: CALCIUM CARBONATE (TUMS) 500 MG (200 MG ELEMENTAL) 400 MG BY MOUTH (17:10)
[2021-02-23] MEDS: FUROSEMIDE INJ 40 MG/4 ML VIAL 20 MG IV PUSH (18:22)
[2021-02-23] MEDS: QUEtiapine FUMARATE 12.5 MG TABLET PO (20:25)
[2021-02-23] MEDS: CEFDINIR 300 MG CAPSULE PO (20:25)
[2021-02-23] MEDS: ZOLPIDEM TARTRATE (*CRX) 5 MG TABLET PO (20:27)
[2021-02-24 04:10] VITALS: BP 98/46; PULSE 100; RESP 17; TEMP 36.4; O2SAT 94
[2021-02-24 07:49] VITALS: O2SAT 95
[2021-02-24] MEDS: ASPIRIN 81 MG CHEWABLE TABLET PO (08:50)
[2021-02-24] MEDS: CYANOCOBALAMIN 500 MCG TABLET PO (08:50)
[2021-02-24] MEDS: DOCUSATE SODIUM 100 MG CAPSULE PO (08:50)
[2021-02-24] MEDS: CEFDINIR 300 MG CAPSULE PO (08:50)
[2021-02-24] MEDS: FERROUS SULFATE 324 MG TABLET PO (08:51)
[2021-02-24] MEDS: PANTOPRAZOLE 40 MG TABLET PO (08:51)
[2021-02-24] MEDS: FUROSEMIDE 20 MG TABLET PO (08:51)
[2021-02-24] MEDS: FOLIC ACID 1 MG TABLET PO (08:51)
[2021-02-24] MEDS: SENNOSIDES 8.6 MG TABLET PO (08:51)
[2021-02-24] MEDS: PARoxetine 20 MG TABLET PO (08:51)
[2021-02-24 09:00] VITALS: O2SAT 92
--- NOTE | 2021-02-24 11:29 | PM.DS ---
DS: Admitting Diagnosis Admitting Diagnosis Admitting Diagnosis: Generalized weakness DS: Discharge Diagnosis Discharge Diagnosis (1) MDS (myelodysplastic syndrome): Code(s): D46.9 - Myelodysplastic syndrome, unspecified Status: Acute Assessment and Plan: Appreciate consultation from Dr. Collado. Patient with known myelodysplastic syndrome with 5q deletion. Was to start on Revlimid but this was discontinued as patient became significantly anemic and thought was she would not be able to tolerate any more treatment with Revlimid. Patient has been receiving Procrit. We continued B12 and iron. She is a DNR. Spoke with daughter about hospice care and she feels the patient is ready for hospice. billing and insurance coordinator to call family to provide more details. (2) Symptomatic anemia: Code(s): D64.9 - Anemia, unspecified Status: Acute Assessment and Plan: Result of myelodysplastic syndrome. Patient is a Taoism and therefore no transfusions. Hemoglobin stable in the 4 range but overall trending down (Hgb 6 range in December). As above. (3) Weakness: Code(s): R53.1 - Weakness Status: Acute Assessment and Plan: Most likely predominantly from severe anemia but also with urinary tract infection. We started PT/OT. (4) UTI (urinary tract infection): Qualifiers: Urinary tract infection type: acute cystitis Hematuria presence: without hematuria Qualified Code(s): N30.00 - Acute cystitis without hematuria Code(s): N39.0 - Urinary tract infection, site not specified Status: Acute Assessment and Plan: Urine culture is growing E coli. Patient had urine retention last admission requiring chronic Rivera catheter. As such this is a complicated UTI. E coli is resistant to Levaquin so antibiotics changed to Cefdinir. Voiding trial at facility. (5) Chronic respiratory failure with hypoxia: Code(s): J96.11 - Chronic respiratory failure with hypoxia Status: Chronic Assessment and Plan: Patient last month was on 2 L oxygen nasal cannula but at time of discharge was up to 3 L. Patient was on 5 L oxygen here continuously. CXR reviewed and showing worsening airspace disease so Lasix IV x1 given. Able to wean O2 to 3L. (6) Metastatic lung cancer (metastasis from lung to other site): Qualifiers: Laterality: unspecified laterality Qualified Code(s): C34.90 - Malignant neoplasm of unspecified part of unspecified bronchus or lung Code(s): C34.90 - Malignant neoplasm of unspecified part of unspecified bronchus or lung Status: Chronic Assessment and Plan: Patient with history of non-small cell lung cancer status post radiation therapy completed in August 2020. CTA of the chest last month showing multiple lung nodules. Continue other treatments as noted above. DS: Summary Hospital Course Reason for hospitalization: 80yo with MDS and chronic respiratory failure here for generalized weakness. Please see H&P for details. Hospital Course: Please see above for details of hospital course. Status at Discharge Cognitive/behavioral status at discharge: Stable Time Spent with Patient Time attestation: Total time spent providing and/or coordinating discharge services: 5 minutes Time spent: Greater than 30 minutes Specific discharge activities: Discussed with daughter at length about hospice. Exam Narrative: Exam Narrative: AF 97.6 98/46 100 17 92% 3L Gen - NARD sitting up in bed Chest - mild bibasilar crackles, nml RR CV - RRR S1/S2. Abd - Soft, NT/ND, Positive BS Ext - No pedal edema Psych - Nml mood and affect Skin - Warm and dry DS: Data Data Completed and Pending Labs on day of discharge: Preliminary micro results at discharge 02/21/21 09:53 Blood Culture - Preliminary Blood Coag negative Staphylococcus 02/21/21 09:56 Blood Culture - Preliminary Blood
== END 2021-02-24 15:30 | disposition hospice, home (50) | DRG 812 ==
PROVIDERS: Internal Medicine; Admitting Provider Hospitalist; Visit Provider Internal Medicine
DX: D46.C Myelodysplastic syndrome with isolated del(5q) chromosomal abnormality (principal); N39.0 Urinary tract infection, site not specified; Z16.23 Resistance to quinolones and fluoroquinolones; J96.11 Chronic respiratory failure with hypoxia; D46.9 Myelodysplastic syndrome, unspecified; D63.8 Anemia in other chronic diseases classified elsewhere; B96.20 Unspecified Escherichia coli [E. coli] as the cause of diseases classified elsewhere; R33.9 Retention of urine, unspecified; R91.8 Other nonspecific abnormal finding of lung field; Z66 Do not resuscitate; J44.9 Chronic obstructive pulmonary disease, unspecified; E78.5 Hyperlipidemia, unspecified; F03.90 Unspecified dementia, unspecified severity, without behavioral disturbance, psychotic disturbance, mood disturbance, and anxiety; F32.9 Major depressive disorder, single episode, unspecified; E66.01 Morbid (severe) obesity due to excess calories; Z68.32 Body mass index [BMI] 32.0-32.9, adult; Z90.49 Acquired absence of other specified parts of digestive tract; Z87.891 Personal history of nicotine dependence; Z85.118 Personal history of other malignant neoplasm of bronchus and lung; Z99.81 Dependence on supplemental oxygen; Z85.6 Personal history of leukemia
CPT/HCPCS: 36415; 71045; 80048; 80053; 85027; 85055; 87040; 87077; 87086; 87088; 87186; 94640; 97161; 97165; A9270; J1756; J1940; J1956; Q5106